=== PATIENT | female | born 1940 | race Two or more races ===

== ENCOUNTER 2016-08-12 08:40 | Outpatient (CLI) | payer MEDICARE, MEDICAID ==
[~2016-08-12] VITALS: Ht 160 cm; Wt 74.8 kg
[2016-08-12] VITALS (8 sets, daily range): BP systolic 101–132; BP diastolic 46–81
[~2016-08-12 08:40] MED LIST: ALLO100T PO; AMLO10TA2 PO; CARV12.52 PO; CARV25TA PO; CARV25TA2 PO; CLON0.1T PO; CLON0.2T PO; CLOP75TA PO; CYAN500T40 SL; DIPH25CA58 PO; DONE10TA7 PO; FERR-26 PO; INSU100I17 SQ; LEVO112T4 PO; LORA10TA68 PO; LOSA100T6 PO; NYST1000 SWSW; SERT50TA PO; SIMV10TA3 PO; VENTOLIN HFA18 GM INH; ZOLP5TAB PO
[2016-08-12 09:11] LABS: BASO % 0 % (0-3); EOS % 3 % (0-3); HEMATOCRIT 39.1 % (36.0-47.0); HEMOGLOBIN 13.4 g/dL (12.0-15.5); LYMPH # 1.5 x10^3/uL (1.0-4.8); LYMPH % 27 % (24-48); MEAN CORPUSCULAR HEMOGLOBIN 31 pg (25-35); MEAN CORPUSCULAR HGB CONC 34 g/dL (31-37); MEAN CORPUSCULAR VOLUME 91 fL (79-100); MONO % 7 % (0-9); NEUT % 63 % (31-73); PLATELET COUNT 207 x10^3/uL (140-400); RED BLOOD COUNT 4.31 x10^6/uL (3.50-5.40); RED CELL DISTRIBUTION WIDTH 14.8 % (11.5-14.5); WHITE BLOOD COUNT 5.7 x10^3/uL (4.0-11.0)
[2016-08-12] MEDS ORDERED: LIDOCAINE 1%/EPI 1:100,000 20 ML VIAL. ONE (09:19)
[2016-08-12 09:23] LABS: PROTHROMBIN TIME PATIENT 12.4 SEC (11.7-14.0)
[2016-08-12] MEDS ORDERED: FENTANYL PF 250 MCG/5 ML VIAL. ONE (09:40)
[2016-08-12] MEDS ORDERED: MIDAZOLAM HCL/PF 5 MG/5 ML VIAL ONE (09:40)
[2016-08-12] MEDS ORDERED: LIDOCAINE 1%/EPI 1:100,000 20 ML VIAL. IJ ONE (10:00)
[2016-08-12] MEDS ORDERED: MIDAZOLAM HCL/PF 5 MG/5 ML VIAL IV ONE (10:00)
[2016-08-12] MEDS ORDERED: FENTANYL PF 250 MCG/5 ML VIAL. IV ONE (10:00)
--- NOTE | 2016-08-12 10:01 | PDOC ---
MODERATE SEDATION ASSESSMENT RISKS/ALTERNATIVES Risks/Alternatives Risks and alternatives of this type of sedation and procedure discussed with: RISK/ALTERNATIVES: Patient H & P ON CHART H & P H & P on chart and reviewed for co-morbid conditions and appropriate labs. H&P ON CHART: Yes STATUS PREG STATUS ASSESSED: N/A MEDS/ALLERGIES REVIEWED Meds/Allergies Reviewed Medications and Allergies including time and route of recently administered narcotics and sedatives. MEDS/ALLERGIES REVIEWED: Yes ASA RATING ASA RATING: II AIRWAY ASSESSMENT Airway Assessment Airway patency, oral function limitations, presence of caps, crowns, dentures, partials, and ability to extend neck assessed. AIRWAY ASSESSMENT: Yes MALLAMPATI SCORE MALLAMPATI SCORE: II PRE-SEDATION ASSESSMENT PRE-SEDATION ASSESSMENT: Yes DOTTY ANDERS MD Aug 12, 2016 10:01
--- NOTE | 2016-08-12 10:04 | PDOC1 ---
History and Physical Date of Procedure Date of Admission 08/12/16 Procedure Procedure Removal of rt IJ tunneled Power Port Indication Indication Lymphoma in remission---chemotx complete---Power Port no longer needed. Past Medical History Past Medical History See Nursing Pre Procedure PMH Past Surgical History Past Surgical History See Nursing pre procedure PSH Current Medications Current Medications Current Medications Lidocaine/ Epinephrine 20 ml 20 ml STK-MED ONCE .ROUTE ; Start 08/12/16 at 09:19 ; Stop 08/12/16 at 09:20; Status DC Heparin Sodium/ Sodium Chloride 500 ml @ As Directed STK-MED ONCE .ROUTE ; Start 08/12/16 at 09:19; Stop 08/12/16 at 09:20; Status DC Midazolam HCl (Versed) 5 mg STK-MED ONCE .ROUTE ; Start 08/12/16 at 09:40; Stop 08/12/16 at 09:41; Status DC Fentanyl Citrate (Fentanyl 5ml Vial) 250 mcg STK-MED ONCE .ROUTE ; Start at 09:40; Stop 08/12/16 at 09:41; Status DC Heparin Sodium/ Sodium Chloride 1,000 unit 1X ONCE IART ; Start 08/12/16 at 10: 00; Stop 08/12/16 at 10:01 Midazolam HCl (Versed) 5 mg 1X ONCE IV ; Start 08/12/16 at 10:00; Stop 08/12/16 at 10:01 Fentanyl Citrate (Fentanyl 5ml Vial) 250 mcg 1X ONCE IV ; Start 08/12/16 at 10: 00; Stop 08/12/16 at 10:01 Lidocaine/ Epinephrine (Xylocaine 1%-Epi 1:100,000) 20 ml 1X ONCE IJ ; Start at 10:00; Stop 08/12/16 at 10:01 Active Scripts Active Allopurinol 100 Mg Tablet 200 Mg PO DAILY 30 Days Amlodipine Besylate 10 Mg Tablet 10 Mg PO BID 30 Days Reported Novolog Flexpen (Insulin Aspart) 100 Unit/1 Ml Insuln.pen 1 Unit SQ sliding scale per dr kostas Pereira (Diphenhydramine Hcl) 25 Mg Capsule 2 Cap PO QHS Coreg (Carvedilol) 25 Mg Tablet 1 Tab PO BID Simvastatin 10 Mg Tablet 10 Mg PO DAILY Ferrous Sulfate 325 Mg Tablet 325 Mg PO DAILY Losartan Potassium 100 Mg Tablet 100 Mg PO DAILY Zoloft (Sertraline Hcl) 50 Mg Tablet 50 Mg PO DAILY Levothyroxine Sodium 112 Mcg Tablet 112 Mcg PO DAILYAC Donepezil Hcl 10 Mg Tablet 10 Mg PO HS Clopidogrel (Clopidogrel Bisulfate) 75 Mg Tablet 75 Mg PO DAILY Allergies Allergies: Coded Allergies: No Known Drug Allergies (Unverified , 07/01/15) Physical Exam Vital Signs Vital Signs Date Time Temp Pulse Resp B/P Pulse Ox O2 Delivery O2 Flow Rate FiO2 08/12/16 09:24 Room Air 08/12/16 09:23 97.6 57 13 125/64 97 97.6 Lungs: Clear to auscultation Heart: Regular rate Psych/Mental Status: Mental status NL Other Right IJ tunneled Power Port in place---no evidence of infection Assessment Assessment Lymphoma in remission---chemotx complete Problems: Plan Plan Removal rt IJ tunneled Power Port. DOTTY ANDERS MD Aug 12, 2016 10:04
--- NOTE | 2016-08-12 10:08 | PDOC ---
Exam Machine Shorthand Reporter Machine Shorthand Reporter Shakeel Aitchbone Breaker Aitchbone Breaker Sandra Gross Pre-Procedure Diagnosis Pre-Procedure Diagnosis Lymphoma in remission---chemotx complete---Power Port no longer needed. Post-Procedure Diagnosis Post-Procedure Diagnosis Same Procedure Performed Procedure Performed Removal rt IJ tunneled Power Port Type of Anesthesia Type of Anesthesia Local + Mod sedation Estimated Blood Loss EBL: Minimal Specimens Specimans 8F rt IJ tuneled Power Port removed and discarded Condition of Patient Condition of Patient Stable. No apparent complication. Disposition Disposition Home from [facility] post recovery, if no problems. F/u with referring physician, Full report to follow. DOTTY ANDERS MD Aug 12, 2016 10:08
[2016-08-12] MEDS ORDERED: CLON0.1T PO (10:48)
--- NOTE | 2016-08-12 15:43 | RAD ---
Removal of Power Port Indication: 75-year-old female with large B-cell lymphoma in remission. Chemotherapy complete. Power port no longer required. Moderate sedation: 17 minutes moderate sedation was provided utilizing a total of 1.5 mg Versed and 75 mcg fentanyl, IV. The patient was appropriately monitored by a qualified independent observer throughout the course of the moderate sedation. Sterility: All elements of maximal sterile barrier technique, including the use of a cap, mask, sterile gown, sterile gloves, large sterile sheet, appropriate hand hygiene, and 2% chlorhexidine for cutaneous antisepsis (or acceptable alternative antiseptic per current guidelines) were utilized. Fluoroscopy time: 0.1 minutes Kerma-Area Product: 0.4 Gycm2 Antibiotic: No prophylactic antibiotic was considered indicated for this power port removal procedure. Procedure: Informed consent was obtained from the patient. She was placed supine on the angiography table. Right chest was prepped and draped in the usual sterile fashion, utilizing all elements of maximal sterile barrier technique, as described above. Conscious sedation was provided with IV versed and fentanyl. Using aseptic technique and local anesthesia, a small horizontally oriented skin incision was made overlying body of the indwelling Power Port. Subsequently, using a combination of blunt and sharp dissection, the Power Port body was freed from surrounding soft tissues. The port body and catheter were then easily removed as a single unit, using gentle traction. Hemostasis was achieved using manual pressure over right internal jugular vein. The chest incision was then closed with 4-0 Vicryl, steri-strips, and sterile dressing. Complete removal of the Power Port was confirmed with pre- and post-procedure fluoroscopic spot images. Patient tolerated the procedure well, without apparent complication. Impression: Successful, uneventful removal of right IJ tunneled Power Port, as described.
== END 2016-08-12 12:00 | disposition home or self-care (01) ==
LOC: INTRAD 08:40
PROVIDERS: ATTEND Internal Medicine Hematology & Oncology
DX: C85.90 Non-Hodgkin lymphoma, unspecified, unspecified site (principal); E78.00 Pure hypercholesterolemia, unspecified; I10 Essential (primary) hypertension; N39.0 Urinary tract infection, site not specified; E11.9 Type 2 diabetes mellitus without complications; E03.9 Hypothyroidism, unspecified; F41.9 Anxiety disorder, unspecified; F32.9 Major depressive disorder, single episode, unspecified
CPT/HCPCS: 36415; 36590; 82947; 85027; 85610; J2250; J3010; J3490

== ENCOUNTER → 2016-10-06 | Outpatient (CLI) | payer MEDICARE, MEDICAID ==
[2016-09-05 11:49] VITALS: BP 124/49
--- NOTE | 2016-10-06 18:09 | CARD ---
APPROVED REPORT EXAM: Two-dimensional and M-mode echocardiogram with Doppler and color Doppler. Other Information Quality : Technically LimitedHR: 65bpm Rhythm : NSR INDICATION Dyspnea Fatigue Hypertension/HCVD Murmur Mitral Regurgitation RISK FACTORS Hypertension Hyperlipidemia Family History 2D DIMENSIONS RVDd3.2 (2.9-3.5cm)Left Atrium(2D)3.8 (1.6-4.0cm) IVSd0.9 (0.7-1.1cm)Aortic Root(2D)2.5 (2.0-3.7cm) LVDd3.2 (3.9-5.9cm)LVOT Diameter2.2 (1.8-2.4cm) PWd0.9 (0.7-1.1cm)LVDs2.2 (2.5-4.0cm) FS (%) 31.1 %SV24.1 ml LVEF(%)65.0 (>50%) Aortic Valve AoV Peak Thong.200.0cm/sAoV VTI42.8cm AO Peak GR.16.0mmHgLVOT Peak Thong.178.4cm/s LVOT VTI 44.20cmAO Mean GR.7mmHg JESUS (VMAX)3.84fb2GOR (VTI)3.81cm2 Mitral Valve MV E Gaizukko629.6cm/sMV DECEL UKYG654hs MV A Lnpiiwpo11.7cm/sMV E Mean Gr.3mmHg MV FGJ07tzZ/A Ratio1.2 MV A Dczphxyo806hzWUM (PHT)2.89cm2 TDI E/Lateral E'11.1E/Medial E'13.8 Pulmonary Valve PV Peak Hcjdrysk24.4cm/sPV Peak Grad.4mmHg Tricuspid Valve TR P. Jmolhlor291hx/sRAP BIHSHWSG7isOs TR Peak Gr.20vnLpJXPY11wxDc Pulmonary Vein S1 Zyuaeyww39.2cm/sD2 Rgxafzkj08.7cm/s PVa arcondys312askl LEFT VENTRICLE The left ventricle is normal size. There is normal left ventricular wall thickness. Left ventricle sy stolic function is normal. The Ejection Fraction is 65%. There is normal LV segmental wall motion. Tr ansmitral Doppler flow pattern is normal for age. There is no ventricular septal defect visualized. RIGHT VENTRICLE The right ventricle is normal size. There is normal right ventricular wall thickness. The right ventr icular systolic function is normal. Moderator band appears thickened. ATRIA The left atrium size is normal. The right atrium size is normal. The interatrial septum is intact wit h no evidence for an atrial septal defect or patent foramen ovale as noted on 2-D or Doppler imaging. AORTIC VALVE The aortic valve is calcified The aortic valve is trileaflet. Doppler and Color Flow revealed trivial aortic regurgitation. There is very mild aortic valvular stenosis. The gradient may be about 16 mmHg for the peak pressure MITRAL VALVE Mitral annular calcification is mild. There is no evidence of mitral valve prolapse. Doppler and [place] r Flow revealed moderate mitral regurgitation. TRICUSPID VALVE The tricuspid valve is normal in structure. Doppler and Color Flow revealed moderate tricuspid regurg itation. There is moderate pulmonary hypertension. The PA pressure was estimated at 40 mmHg. PULMONIC VALVE The pulmonary valve is normal in structure. Doppler and Color Flow revealed mild pulmonic valvular re gurgitation. GREAT VESSELS The aortic root is normal in size. The ascending aorta is normal in size. Normal pulmonary venous soila w (Doppler). The IVC is normal in size and collapses >50% with inspiration. PERICARDIAL EFFUSION There is no pleural effusion. There is no evidence of significant pericardial effusion. Critical Notification Critical Value: No <Conclusion> Left ventricle systolic function is normal. The Ejection Fraction is 65%. There is no ventricular septal defect visualized. The right ventricle is normal size. The left atrium size is normal. The right atrium size is normal. There is very mild aortic valvular stenosis. The gradient may be about 16 mmHg for the peak pressure Doppler and Color Flow revealed trivial aortic regurgitation. The aortic valve is calcified The aortic valve is trileaflet. Mitral annular calcification is mild. Doppler and Color Flow revealed moderate mitral regurgitation. Mitral annular calcification is mild. Doppler and Color Flow revealed moderate tricuspid regurgitation. There is moderate pulmonary hypertension. The PA pressure was estimated at 40 mmHg. Doppler and Color Flow revealed mild pulmonic valvular regurgitation. There is no evidence of significant pericardial effusion.
== END | disposition home or self-care (01) ==
LOC: ECHO 07:56
PROVIDERS: ATTEND Internal Medicine Cardiovascular Disease
DX: I10 Essential (primary) hypertension (principal); I34.0 Nonrheumatic mitral (valve) insufficiency; R06.00 Dyspnea, unspecified; R53.83 Other fatigue; R01.1 Cardiac murmur, unspecified; I27.2 Other secondary pulmonary hypertension; I07.1 Rheumatic tricuspid insufficiency
CPT/HCPCS: 93306

== ENCOUNTER → 2017-01-26 | Outpatient (CLI) | payer MEDICARE, MEDICAID ==
[2016-09-05 11:49] VITALS: BP 124/49
[~2017-01-26] MED LIST changes: -NYST1000 SWSW; +NYST100054 SWSW
--- NOTE | 2017-01-26 12:20 | RAD ---
FDG tumor localization scan, PET/CT, 01/26/2017: History: Restaging lymphoma Following IV injection of 13.5 mCi of 18 F-FDG, imaging was performed from the skull base to the proximal thighs. The noncontrast CT component was performed for attenuation correction and anatomic localization purposes rather than for primary diagnosis. The patient's blood glucose level at the time of injection was 193 MG/DL. Comparison is made to a study from 07/21/2016. Normal GI tract and urinary tract activity is present in the abdomen and pelvis. Mildly enlarged periaortic and mesenteric lymph nodes are unchanged. There is mild streaky increased density in the adjacent mesentery on the CT component, also unchanged. These nodes do not demonstrate increased FDG uptake. No hypermetabolic process is identified in the abdomen or pelvis. Pulmonary and mediastinal activity is unremarkable. There is moderately increased activity in the right lower cheek region. Its exact location is not entirely clear due to slight misregistration between the CT and PET components due to head motion. The CT component demonstrates no definite mass in this region. This increased activity is centered just anterior to the right masseter muscle and anterior margin of the inferior portion of the mandibular ramus. This is likely dental related inflammation or could be secondary to jaw clenching. The neck activity is otherwise unremarkable. Incidental CT findings include the presence of a moderate sized gallstone. There is extensive calcific plaquing of the aorta with moderate coronary artery calcifications again noted. Colonic diverticula are present. There is a moderate sized right renal cyst. IMPRESSION: 1. Stable abdominal and pelvic FDG PET findings without evidence of tumor recurrence. 2. New abnormal focus of increased activity in the right cheek region as described above is most likely dental related.
== END | disposition home or self-care (01) ==
LOC: PETSC 08:24
PROVIDERS: ATTEND Internal Medicine Hematology & Oncology
DX: C83.33 Diffuse large B-cell lymphoma, intra-abdominal lymph nodes (principal); K57.30 Diverticulosis of large intestine without perforation or abscess without bleeding; N28.1 Cyst of kidney, acquired
CPT/HCPCS: 78815; A9552

== ENCOUNTER 2017-04-25 06:47 | Observation (INO) | payer MEDICARE, MEDICAID ==
[2017-04-25] VITALS (9 sets, daily range): BP systolic 164–189; BP diastolic 49–122
[~2017-04-25] VITALS: Ht 157.5 cm; Wt 77.1 kg
[~2017-04-25 06:47] MED LIST changes: +ASPI-482 PO; +DABI150C PO; +HEPARIN 1,000 UNIT in IV NORMAL SALINE 1,000 ML for SURG PERIOP IRR ONE; +LEVO500T59 PO
[2017-04-25] MEDS ORDERED: fentaNYL PF VIAL 100 MCG/2 ML VIAL IV PRN ×2 (07:00)
[2017-04-25] MEDS ORDERED: MORPHINE SULFATE 2 MG/ML DISP.SYRIN. IV PRN (07:00)
[2017-04-25] MEDS ORDERED: LIDOCAINE 1% 1 ML SYRINGE. ID PRN (07:00)
[2017-04-25] MEDS ORDERED: IV RINGERS,LACTATED 1000ML 1,000 ML IV SCH (07:00)
[2017-04-25] MEDS ORDERED: HYDROmorphone 2 MG/ML VIAL IV PRN (07:00)
[2017-04-25] MEDS ORDERED: PROCHLORPERAZINE 10 MG/2 ML VIAL. IV PRN (07:00)
[2017-04-25] MEDS ORDERED: IBUPROFEN 200 MG TABLET. PO ONE ×2 (07:05→14:00)
[2017-04-25] MEDS ORDERED: BISACODYL 10 MG SUPP.RECT. ONE (07:13)
[2017-04-25] MEDS ORDERED: IOHEXOL 300 MG/ML 50 ML VIAL. ONE (07:13)
[2017-04-25] MEDS ORDERED: SURGICEL HEMOSTAT 2X3 EACH. ONE (07:13)
[2017-04-25] MEDS ORDERED: BUPIVACAINE-EPI 0.5%-1:200000 50 ML VIAL. ONE (07:13)
[2017-04-25] MEDS ORDERED: LIDOCAINE 2% PF Vial for OR 5 ML VIAL. ONE (07:31)
[2017-04-25] MEDS ORDERED: DEXAMETHASONE SOD PHOS 20 MG/5 ML VIAL. ONE (07:31)
[2017-04-25] MEDS ORDERED: PROPOFOL 20 ML IV ONE (07:31)
[2017-04-25] MEDS ORDERED: DESFLURANE 61 TO 120 MINUTES IH ONE (07:31)
[2017-04-25] MEDS ORDERED: ONDANSETRON PF 4 MG/2 ML VIAL. ONE (07:31)
[2017-04-25] MEDS ORDERED: fentaNYL PF VIAL 100 MCG/2 ML VIAL ONE (07:32)
[2017-04-25] MEDS ORDERED: ROCURONIUM 100 MG/10 ML VIAL. ONE (07:32)
--- NOTE | 2017-04-25 08:06 | PDOC ---
SURGICAL PROGRESS NOTE Subjective Pre-Op Note 76 yo F with gallstone pancreatitis office note H&P reviewed and unchanged pt seen and examined. R/B/A d/w pt, risks, including, but not limited to: bleeding, infection, damage to surrounding structures, risk of anesthesia. Pt appears to understand, her questions are answered and she agrees to proceed. TO OR for lap yeison with grams. Vital Signs Vital Signs Date Time Temp Pulse Resp B/P (MAP) Pulse Ox O2 Delivery O2 Flow Rate FiO2 04/25/17 07:11 98.2 67 18 95 98.2 Labs Laboratory Tests Test 04/25/17 07:41 Glucose (Fingerstick) 140 mg/dL (70-99) Laboratory Tests Test 04/25/17 07:41 Glucose (Fingerstick) 140 mg/dL (70-99) YAYA FAIRCHILD MD Apr 25, 2017 08:06
[2017-04-25] MEDS ORDERED: GLYCOPYRROLATE 1 MG/5 ML VIAL. ONE (08:46)
[2017-04-25] MEDS ORDERED: NEOSTIGMINE 10 MG/10 ML VIAL. ONE (09:01)
--- NOTE | 2017-04-25 09:06 | RAD ---
Intraoperative cholangiogram, 04/25/2017: History: Cholecystectomy 3 spot films from surgery are presented for review. Contrast has been injected into the cystic duct remnant. 0.2 minutes of fluoroscopy time was utilized. There is good flow of contrast into the duodenum at the ampulla. No filling defect is seen in the common duct to suggest a retained calculus. There is considerable contrast extravasation in the gallbladder fossa region. This is likely on a technical basis related to the catheter insertion site in the cystic duct remnant, however, a true biliary leak cannot be entirely excluded. There is very little intrahepatic biliary ductal opacification.
[2017-04-25] MEDS ORDERED: INSULIN ASPART 100 UNIT/ML 10ML VIAL. SQ PRN (09:30)
[2017-04-25] MEDS: IV RINGERS,LACTATED 1000ML 1,000 ML IV SCH ×2 (10:20→20:39)
[2017-04-25] MEDS ORDERED: DEXTROSE 50% 25 GM / 50ML DISP.SYRIN. IV PRN ×2 (10:30→12:30)
[2017-04-25] MEDS ORDERED: 0.9 % SODIUM CHLORIDE 10 ML DISP.SYRIN. IV PRN (10:30)
[2017-04-25] MEDS ORDERED: ONDANSETRON PF 4 MG/2 ML VIAL. IV PRN (10:30)
[2017-04-25] MEDS ORDERED: KETOROLAC 30 MG/ML INJ. IV PRN (10:30)
--- NOTE | 2017-04-25 10:31 | PDOC4 ---
OPERATIVE NOTE Date: Date: Apr 25, 2017 Pre-Op Diagnosis: Cholecystitis Post-Op Diagnosis: same Procedure Performed: Laparoscopic cholecystectomy with cholangiogram Surgeon: Froylan Fairchild Anesthesia Type: GETA plus 0.5% marcaine Blood Loss: minimal Specimans Obtained: gallbladder Findings: normal cholangiogram Complications: none Operative Note: After obtaining informed consent, patient was taken to the OR, induced under GETA and prepped in the usual fashion. 5 mm port placed supraumbilical and right upper quadrant with 10 port in epigastric area, all under laparoscopic guidance. Mild adhesions in the lower pelvis, but no other pathology noted. Gallbladder with chronic adhesions. Gallbladder grasped, triangle of calot exposed, critical view obtained. Clips placed on cystic artery. Cholangiogram obtained which was normal. Cystic duct stump ligated with clips and hemolok. Gallbladder taken off fossa sharply using cautery, placed in endocatch bag and delivered. No evidence of bleeding or bile leak. Fascia repair with PMI 0 vicryl. Skin repaired with 4 0 moncryl. Dressing applied. Patient tolerated procedure well and sent to PACU in stable condition. All counts correct. No immediate complications. FROYLAN FAIRCHILD MD Apr 25, 2017 10:31
[2017-04-25 11:56] LABS: CREATININE 1.3 mg/dL (0.6-1.0); GFR 39.6
[2017-04-25] MEDS ORDERED: DONE10TA7 PO (12:24)
[2017-04-25] MEDS: FERROUS SULFATE 325 MG TABLET. PO SCH (13:58)
[2017-04-25] MEDS: SERTRALINE 50 MG TABLET. PO SCH (13:59)
[2017-04-25] MEDS: INSULIN ASPART 300 UNITS/3 ML INSULN.PEN SQ SCH ×2 (14:08→17:06)
[2017-04-25] MEDS: LEVOTHYROXINE 112 MCG TABLET PO SCH (16:54)
[2017-04-25] MEDS: HYDROcodone/APAP 5/325MG 1 TAB TABLET PO PRN (16:55)
[2017-04-25] MEDS: CARVEDILOL 12.5 MG TABLET. PO SCH (16:55)
[2017-04-25] MEDS ORDERED: INSULIN ASPART 300 UNITS/3 ML INSULN.PEN SQ SCH ×2 (17:00→21:00)
[2017-04-25] MEDS ORDERED: INFLUENZA VAX SCREEN BY RX. MC PRN (19:30)
[2017-04-25] MEDS: DOCUSATE SODIUM 100 MG CAPSULE. PO SCH (20:33)
[2017-04-25] MEDS: amLODIPine BESYLATE 5 MG TABLET PO SCH (20:37)
[2017-04-25] MEDS ORDERED: DABIGATRAN ETEXILATE 150 MG CAPSULE. PO SCH (21:00)
[2017-04-25] MEDS ORDERED: INSULIN ASPART 300 UNITS/3 ML INSULN.PEN SQ ONE (21:00)
[2017-04-25] MEDS ORDERED: diphenhydrAMINE HCL 25 MG CAPSULE PO SCH (21:00)
[2017-04-25] MEDS ORDERED: SIMVASTATIN 10 MG TABLET PO SCH (21:00)
[2017-04-25] MEDS ORDERED: DONEPEZIL HCL 10 MG TABLET. PO SCH (21:00)
[2017-04-26] MEDS ORDERED: INSULIN ASPART 300 UNITS/3 ML INSULN.PEN SQ ONE
[2017-04-26 03:22] VITALS: BP 199/53
[2017-04-26 03:44] VITALS: BP 194/57
[2017-04-26] MEDS: IV RINGERS,LACTATED 1000ML 1,000 ML IV SCH (05:56)
[2017-04-26] MEDS: HYDROcodone/APAP 5/325MG 1 TAB TABLET PO PRN ×2 (05:57)
[2017-04-26] MEDS: LEVOTHYROXINE 112 MCG TABLET PO SCH (05:58)
[2017-04-26 07:00] VITALS: BP 151/79
[2017-04-26] MEDS ORDERED: ASPIRIN ENTERIC COATED 81 MG TABLET.DR. PO SCH (09:00)
[2017-04-26] MEDS ORDERED: ENOXAPARIN 40 MG/0.4 ML SYRINGE. SQ SCH (09:00)
[2017-04-26] MEDS ORDERED: FLU VACC QS2017-18 (36MOS+)/PF 0.5 ML SYRINGE. VAX IM ONE (09:00)
[2017-04-26 10:22] VITALS: BP 151/79
[2017-04-26] MEDS: SERTRALINE 50 MG TABLET. PO SCH (10:22)
[2017-04-26] MEDS: amLODIPine BESYLATE 5 MG TABLET PO SCH (10:22)
[2017-04-26] MEDS: CARVEDILOL 12.5 MG TABLET. PO SCH (10:22)
[2017-04-26] MEDS: DOCUSATE SODIUM 100 MG CAPSULE. PO SCH (10:23)
[2017-04-26] MEDS: FERROUS SULFATE 325 MG TABLET. PO SCH (10:23)
[2017-04-26] MEDS: INSULIN ASPART 300 UNITS/3 ML INSULN.PEN SQ SCH ×2 (10:27→12:08)
[2017-04-26] MEDS ORDERED: HYDR-2758 PO (11:13)
[2017-04-26] MEDS ORDERED: DOCU-109 PO (11:13)
--- NOTE | 2017-04-26 11:14 | PDOC ---
SURGICAL PROGRESS NOTE Subjective Pt without c/o, seb PO well Vital Signs Vital Signs Date Time Temp Pulse Resp B/P (MAP) Pulse Ox O2 Delivery O2 Flow Rate FiO2 04/26/17 10:22 63 151/79 04/26/17 07:00 98.6 20 95 Room Air 98.6 04/25/17 09:31 10 General: Alert, Oriented X3, Cooperative, No acute distress Abdomen: Soft, No tenderness Labs Laboratory Tests Test 04/25/17 07:41 04/25/17 09:22 04/25/17 10:52 04/25/17 11:30 Glucose (Fingerstick) 140 mg/dL (70-99) 181 mg/dL (70-99) 155 mg/dL (70-99) Creatinine 1.3 mg/dL (0.6-1.0) Estimated GFR (Cockcroft-Gault) 39.6 Test 04/25/17 14:04 04/25/17 16:40 04/25/17 20:43 04/25/17 22:55 Glucose (Fingerstick) 284 mg/dL (70-99) 209 mg/dL (70-99) 284 mg/dL (70-99) 258 mg/dL (70-99) Laboratory Tests Test 04/25/17 11:30 04/25/17 14:04 04/25/17 16:40 04/25/17 20:43 Creatinine 1.3 mg/dL (0.6-1.0) Estimated GFR (Cockcroft-Gault) 39.6 Glucose (Fingerstick) 284 mg/dL (70-99) 209 mg/dL (70-99) 284 mg/dL (70-99) Test 04/25/17 22:55 Glucose (Fingerstick) 258 mg/dL (70-99) Problem List s/p lap yeison d/c home f/u with PCP regarding elevated glu and HTN Problems: YAYA FAIRCHILD MD Apr 26, 2017 11:14
--- NOTE | 2017-04-27 13:34 | PATHOLOGY ---
PATHOLOGY REPORT * * * * * * * * FINAL DIAGNOSIS: Gallbladder, laparoscopic cholecystectomy: - Cholelithiasis. - Chronic cholecystitis. - Benign pericystic duct lymph node. COMMENT: There is no evidence of malignancy. (JPM:mgr; 04/27/2017) REPORT ELECTRONICALLY SIGNED BY: Sebas Redman M.D. DATE/TIME: 04/27/2017 13:34 * * * * * * * * GROSS PATHOLOGY: Received in formalin labeled "Chelo Alba, gallbladder and contents," is a 7.3 x 3.2 x 2.5 cm, intact gallbladder with purple antonio serosal surfaces. Opening the gallbladder reveals donahue brown, velvety mucosa and an average wall thickness of 0.3 cm. A single, large ovoid calculus, measuring 3.7 cm in greatest dimensions is present and no masses are noted grossly. Validation Leader sections from the body and fundus are submitted along with the proximal margin in cassette A1. There is a small, 0.7 cm rubbery purple antonio lymph node along the serosal surface of the neck of the gallbladder. This is submitted in toto, also in cassette A1. (JPM; 04/25/17) INITIAL CPT CODE(S): A; 32515 Professional services performed by [employer] at [address] [address] Technical services performed by [employer] at [address] [place] [address], [facility] [address] [address]. SPECIMEN(S) RECEIVED: A.Gallbladder sac with contents CLINICAL HISTORY: Gallstone pancreatitis PATIENT: CHELO ALBA /AGE: 1 1940 (Age: 76) PATIENT #: [id number] ALT CASE #: SPECIMEN COLLECTION DATE: 04/25/2017 SPECIMEN RECEIVED DATE: 04/25/2017 [facility] - [id number] [address] - PHONE: [phone] * * * END OF REPORT * * *
== END 2017-04-26 13:30 | disposition home or self-care (01) ==
LOC: SURG 06:47 → 4 NORTH 10:40
PROVIDERS: ADMIT Surgery; ATTEND Surgery
DX: K85.10 Biliary acute pancreatitis without necrosis or infection (principal); E03.9 Hypothyroidism, unspecified; C85.90 Non-Hodgkin lymphoma, unspecified, unspecified site; I63.9 Cerebral infarction, unspecified; E78.5 Hyperlipidemia, unspecified; F41.9 Anxiety disorder, unspecified; F32.9 Major depressive disorder, single episode, unspecified; E11.22 Type 2 diabetes mellitus with diabetic chronic kidney disease; I12.9 Hypertensive chronic kidney disease with stage 1 through stage 4 chronic kidney disease, or unspecified chronic kidney disease; N18.9 Chronic kidney disease, unspecified; F03.90 Unspecified dementia, unspecified severity, without behavioral disturbance, psychotic disturbance, mood disturbance, and anxiety; N39.0 Urinary tract infection, site not specified; E66.9 Obesity, unspecified; Z86.73 Personal history of transient ischemic attack (TIA), and cerebral infarction without residual deficits; Z68.30 Body mass index [BMI] 30.0-30.9, adult; Z98.890 Other specified postprocedural states; Z23 Encounter for immunization
CPT/HCPCS: 36415; 47563; 74300; 82565; 82962; 88304; 90471; 90686; 96372; 96374; G0378; G0379; J0690; J1100; J1644; J1650; J1815; J1885; J2405; J2704; J2710; J3010; J3490; J7030; J7120; Q0163; Q9967; J2001

== ENCOUNTER → 2017-09-14 | Outpatient (CLI) | payer MEDICARE, MEDICAID | END | disposition home or self-care (01) | LOC: PETSC 09:40 | DX: Z85.72 Personal history of non-Hodgkin lymphomas (principal); C83.30 Diffuse large B-cell lymphoma, unspecified site (principal); C85.90 Non-Hodgkin lymphoma, unspecified, unspecified site; N28.1 Cyst of kidney, acquired; K57.30 Diverticulosis of large intestine without perforation or abscess without bleeding | CPT/HCPCS: 78815; A9552 ==

== ENCOUNTER 2018-07-22 12:15 | Emergency (ER) | payer MEDICARE, MEDICAID ==
[~2018-07-22] VITALS: Ht 160 cm; Wt 77.1 kg
[~2018-07-22 12:15] MED LIST changes: -AMLO10TA2 PO; +AMLO10TA6 PO; +CARV12.511 PO; -CARV12.52 PO; +DOCU-109 PO; -FERR-26 PO; +FERR325T14 PO; -HEPARIN 1,000 UNIT in IV NORMAL SALINE 1,000 ML for SURG PERIOP IRR ONE; +HYDR-2761 PO; +LOSA100T14 PO; -LOSA100T6 PO
[2018-07-22 12:47] VITALS: BP 184/79
--- NOTE | 2018-07-22 13:06 | RAD ---
Left hip with pelvis radiograph 07/22/2018 12:42 PM INDICATION: Left hip pain and groin pain. COMPARISON: None available. TECHNIQUE: AP view the pelvis and 2 dedicated views of the left hip. FINDINGS: There is no acute fracture or dislocation. Bone mineralization is within normal limits. Joint spaces are maintained. Regional soft tissues are within normal limits. There is no soft tissue gas or osseous erosion. Vascular calcifications are present. Phleboliths are identified within the pelvis. Moderate degenerative changes are identified at the lumbosacral junction. Sacral joan are intact. Superior and inferior pubic rami are intact. IMPRESSION: No acute fracture or dislocation. Electronically signed by: Mary Nunez MD (07/22/2018 1:03 PM) [facility]
--- NOTE | 2018-07-22 13:18 | PHYS DOC ---
Past Medical History Past Medical History: Dementia, Diabetes-Type II, High Cholesterol, Hypertension, Hypothyroid, Other Additional Past Medical Histor: Lymphoma in remission Past Surgical History: Tonsillectomy Additional Past Surgical Histo: carotid, hernia, port-a-cath removed Alcohol Use: None Drug Use: None Adult General Chief Complaint Chief Complaint: GROIN PAIN [facility] HPI Patient is a 77 year old female presents for evaluation of nontraumatic left hip pain. She reports she started feeling pain in the anterior left hip while at home today. She did not have any fall or injury. Denies any urinary symptoms. Denies any abdominal pain or back pain. Review of Systems Review of Systems Constitutional: Denies fever or chills [] Eyes: Denies change in visual acuity, redness, or eye pain [] HENT: Denies nasal congestion or sore throat [] Respiratory: Denies cough or shortness of breath [] Cardiovascular: No additional information not addressed in HPI [] GI: Denies abdominal pain, nausea, vomiting, bloody stools or diarrhea [] : Denies dysuria or hematuria [] Musculoskeletal: Left hip pain[] Integument: Denies rash or skin lesions [] Neurologic: Denies headache, focal weakness or sensory changes [] Endocrine: Denies polyuria or polydipsia [] All other systems were reviewed and found to be within normal limits, except as documented in this note. Current Medications Current Medications Current Medications Medications (Trade) Dose Ordered Sig/Brandon Start Time Stop Time Status Last Admin Dose Admin Acetaminophen/ Hydrocodone Bitart (Lortab 5/325) 1 tab 1X ONCE 07/22/18 13:45 07/22/18 13:46 DC 07/22/18 13:47 1 TAB Allergies Allergies Allergies Coded Allergies Type Severity Reaction Last Updated Verified No Known Drug Allergies 04/25/17 No Physical Exam Physical Exam Constitutional: Well developed, well nourished, no acute distress, non-toxic appearance. [] Cardiovascular:Heart rate regular rhythm, no murmur [] Lungs & Thorax: Bilateral breath sounds clear to auscultation [] Abdomen: Soft, nontender Skin: Warm, dry, no erythema, no rash. [] Back: No tenderness, no CVA tenderness. [] Extremities: Tenderness to the left anterior hip, pain with passive range of motion no cyanosis, no edema. [] Neurologic: Alert and oriented X 3, normal motor function, normal sensory function, no focal deficits noted. [] Psychologic: Affect normal, judgement normal, mood normal. [] Current Patient Data Vital Signs Vital Signs Date Time Temp Pulse Resp B/P (MAP) Pulse Ox O2 Delivery O2 Flow Rate FiO2 07/22/18 14:00 56 97 Room Air 07/22/18 12:47 97.7 18 184/79 (114) 97.7 Lab Values Laboratory Tests Test 07/22/18 13:35 Urine Collection Type Unknown Urine Color Yellow Urine Clarity Clear Urine pH 5.5 Urine Specific [place] 1.025 Urine Protein 30 mg/dL (NEG-TRACE) Urine Glucose (UA) >=1000 mg/dL (NEG) Urine Ketones (Stick) Negative mg/dL (NEG) Urine Blood Negative (NEG) Urine Nitrite Negative (NEG) Urine Bilirubin Negative (NEG) Urine Urobilinogen Dipstick 0.2 mg/dL (0.2 mg/dL) Urine Leukocyte Esterase Negative (NEG) Urine RBC 0 /HPF (0-2) Urine WBC 0 /HPF (0-4) Urine Squamous Epithelial Cells Few /LPF Urine Bacteria 0 /HPF (0-FEW) Urine Mucus Slight /LPF EKG EKG [] Radiology/Procedures Radiology/Procedures [PROCEDURE: HIP LEFT 2V WITH PELVIS Left hip with pelvis radiograph 07/22/2018 12:42 PM INDICATION: Left hip pain and groin pain. COMPARISON: None available. TECHNIQUE: AP view the pelvis and 2 dedicated views of the left hip. FINDINGS: There is no acute fracture or dislocation. Bone mineralization is within normal limits. Joint spaces are maintained. Regional soft tissues are within normal limits. There is no soft tissue gas or osseous erosion. Vascular calcifications are present. Phleboliths are identified within the pelvis. Moderate degenerative changes are identified at the lumbosacral junction. Sacral joan are intact. Superior and inferior pubic rami are intact. IMPRESSION: No acute fracture or dislocation. Electronically signed by: Mary Nunez MD (07/22/2018 1:03 PM) [facility]] Course & Med Decision Making Course & Med Decision Making Pertinent Labs and Imaging studies reviewed. (See chart for details) [X-ray of the hip is negative, UA is negative, discussed findings with patient and her daughter at bedside, patient is requesting discharge home stating she is feeling better and not in much pain anymore. She has an appointment with her primary care doctor on Monday. Return to ER for new or worsening symptoms.] Staff Physician Addendum: I was working in the ER during the course of this patient's visit. I was available for consultation as needed, but I was not directly involved in the care of this patient. Dragon Disclaimer Dragon Disclaimer This electronic medical record was generated, in whole or in part, using a voice recognition dictation system. Departure Departure Impression: Primary Impression: Hip pain, left Disposition: 01 HOME, SELF-CARE Condition: STABLE Referrals: FRAN BUSTOS MD (PCP) Patient Instructions: Hip Pain HOLLY TORRES APRN Jul 22, 2018 13:18 TAYLOR GARCIA MD Jul 22, 2018 16:00
[2018-07-22] MEDS ORDERED: HYDROcodone/APAP 5/325MG 1 TAB TABLET PO ONE (13:45)
[2018-07-22 13:46] LABS: BILIRUBIN,URINE NEGATIVE (NEG); CLARITY,URINE CLEAR; COLOR,URINE YELLOW; NITRITE,URINE NEGATIVE (NEG); PH,URINE 5.5; PROTEIN,URINE 30 mg/dL (NEG-TRACE); UROBILINOGEN,URINE 0.2 mg/dL (0.2 mg/dL)
[2018-07-22 14:05] LABS: BACTERIA,URINE 0 /HPF (0-FEW); RBC,URINE 0 /HPF (0-2); SQUAMOUS EPITHELIAL CELL,UR FEW /LPF; WBC,URINE 0 /HPF (0-4)
== END 2018-07-22 14:30 | disposition home or self-care (01) ==
LOC: ER 12:15
DX: M25.552 Pain in left hip (principal); E11.9 Type 2 diabetes mellitus without complications; E78.00 Pure hypercholesterolemia, unspecified; I10 Essential (primary) hypertension; E03.9 Hypothyroidism, unspecified; Z90.89 Acquired absence of other organs
CPT/HCPCS: 73502; 81001; 99284; P9612

== ENCOUNTER → 2018-10-04 | Outpatient (CLI) | payer MEDICARE, MEDICAID ==
[2017-04-26 10:22] VITALS: BP_DIAS 79
[2018-07-22 12:47] VITALS: BP_SYST 184
[~2018-10-04] MED LIST changes: -AMLO10TA6 PO; +AMLO10TA8 PO
--- NOTE | 2018-10-04 15:12 | RAD ---
PET/CT imaging from the skull through the midthigh History: Restaging lymphoma . Comparison: September 14, 2017 Technique: PET examination was performed from the skull base to the proximal thighs after intravenous administration of 13.8 mCi Fluorine [address] scan was performed for the purposes of localization and attenuation, not for primary diagnosis. Blood glucose level at time of injection was 165 mg/dl. PQRS Compliance Statement: One or more of the following individualized dose reduction techniques were utilized for this examination: 1. Automated exposure control 2. Adjustment of the mA and/or kV according to patient size 3. Use of iterative reconstruction technique Findings: Head and neck: Normal physiologic activity seen including the thyroid gland. There is mucosal thickening of both maxillary sinuses and opacification of both sinuses. Chest: No hypermetabolic or enlarged lymphadenopathy is evident. No lung mass or lung nodule or consolidative lung infiltrate is seen. Calcified atheromatous disease of the coronary arteries is seen. Abdomen and pelvis CT: There is hypermetabolic activity involving the proximal body of the stomach with a maximum SUV of 4.0. There is physiologic activity elsewhere within the bowel and tract. A prominent right renal cyst is seen measuring 7 cm. There is a bilobed ovarian cyst or 2 cysts adjacent to one another within the right ovary. The larger cyst measures 2.5 cm. No enlarged abdominal or pelvic lymphadenopathy is evident. The spleen is not enlarged without hypermetabolic activity. Musculoskeletal: No hypermetabolic lesion is seen.No lytic process is seen. IMPRESSION: No enlarging lymphadenopathy or hypermetabolic lymphadenopathy is seen in the neck, chest, abdomen or pelvis. The spleen is not enlarged. Bilobed ovarian cyst or 2 cysts of the right ovary are seen with the largest measuring 2.5 cm. This is a new finding. There is focal activity involving the proximal body of the stomach. This most likely is physiologic in nature but given it's focal location, gastritis or neoplasia cannot be excluded.
== END | disposition home or self-care (01) ==
LOC: PETSC 10:36
PROVIDERS: ATTEND Internal Medicine Hematology & Oncology
DX: C83.33 Diffuse large B-cell lymphoma, intra-abdominal lymph nodes (principal); I25.10 Atherosclerotic heart disease of native coronary artery without angina pectoris; N28.1 Cyst of kidney, acquired
CPT/HCPCS: 78815; A9552

== ENCOUNTER 2021-01-29 17:14 | Inpatient (IN) | payer MEDICARE, MEDICAID ==
[~2021-01-29] VITALS: Ht 152.4 cm; Wt 74.8 kg
[~2021-01-29 17:14] MED LIST changes: +AMLO-187 PO; -AMLO10TA8 PO; +ASPI325T11 PO; +CARV12.53 PO; +CEPH500C PO; +INSU100I13 SQ; +INSU100I53 SQ; -LEVO112T4 PO; +LEVO112T49 PO; +MEMA5TAB42 PO; +SERT-268 PO; +SIMV10TA15 PO; -SIMV10TA3 PO
--- NOTE | 2021-01-29 18:26 | ED.ADGEN ---
Past Medical History Past Medical History: Dementia, Diabetes-Type II, High Cholesterol, Hypertension, Hypothyroid, Other Additional Past Medical Histor: Lymphoma in remission Past Surgical History: Tonsillectomy Additional Past Surgical Histo: carotid, hernia, port-a-cath removed Smoking Status: Never Smoker Alcohol Use: None Drug Use: None General Adult EDM: Chief Complaint: MECHANICAL FALL HPI: HPI: Patient is a 80-year-old female coming in from nursing facility for multiple falls over the past 2 weeks. History is limited to report from the nursing facility and EMS due to patient's severe dementia. Patient herself has no complaints, denies any pain, does not remember falling. Per report the nursing facility wants the patient seen to be "checked out". Patient has a known history of ataxia. The detail of the falls was not provided. Review of Systems: Review of Systems: All other systems within normal limits except for as noted in the HPI Current Medications: Current Medications Medications (Trade) Dose Ordered Sig/Brandon Start Time Stop Time Status Last Admin Dose Admin Acetaminophen (Tylenol) 650 mg PRN Q4HRS PRN 01/29/21 20:45 01/30/21 20:44 Magnesium Sulfate 50 ml @ 25 mls/hr 1X ONCE 01/29/21 21:00 01/29/21 22:59 Ondansetron HCl (Zofran) 4 mg PRN Q8HRS PRN 01/29/21 20:45 01/30/21 20:44 Allergies: Allergies: Allergies Coded Allergies Type Severity Reaction Last Updated Verified No Known Drug Allergies 04/25/17 No Physical Exam: PE: Constitutional: Well developed, well nourished, no acute distress, non-toxic appearance. [] HENT: Normocephalic, atraumatic, bilateral external ears normal, nose normal. [] Eyes: PERRLA, conjunctiva normal, no discharge. [] Neck: No rigidity, supple, no stridor. No tenderness to palpation, no step-off or deformity of the C-spine. [] Cardiovascular: Regular rate and rhythm, brisk cap refill [] Lungs & Thorax: Non labored symmetric respirations, no tachypnea or respiratory distress. No chest tenderness palpation [] Abdomen: Soft, nondistended, no tenderness pelvic. Skin: Warm, dry, no erythema, no rash. Bruising to bilateral hands [] Back: Unremarkable Extremities: No deformities, range of motion grossly intact, no lower extremity edema. No tenderness palpation over upper and lower extremities, no deformities [] Neurologic: Alert and oriented X 3, no focal deficits noted. [] Psychologic: Affect normal, judgement normal, mood normal. [] Current Patient Data: Labs: Laboratory Tests Test 01/29/21 19:40 01/29/21 19:45 Urine Collection Type U cath Urine Color Cherelle Urine Clarity Cloudy Urine pH 5.5 (<5.0-8.0) Urine Specific [place] 1.020 (1.000-1.030) Urine Protein 30 mg/dL (NEG-TRACE) Urine Glucose (UA) 100 mg/dL (NEG) Urine Ketones (Stick) Negative mg/dL (NEG) Urine Blood Trace (NEG) Urine Nitrite Negative (NEG) Urine Bilirubin Negative (NEG) Urine Urobilinogen Dipstick 0.2 mg/dL (0.2 mg/dL) Urine Leukocyte Esterase Trace (NEG) Urine RBC 1-2 /HPF (0-2) Urine WBC 5-10 /HPF (0-4) Urine Bacteria Few /HPF (0-FEW) Urine Hyaline Casts Many /HPF Urine Mucus Mod /LPF Urine Opiates Screen Neg (NEG) Urine Methadone Screen Neg (NEG) Urine Barbiturates Neg (NEG) Urine Phencyclidine Screen Neg (NEG) Urine Amphetamine/Methamphetamine Neg (NEG) Urine Benzodiazepines Screen Neg (NEG) Urine Cocaine Screen Neg (NEG) Urine Cannabinoids Screen Neg (NEG) Urine Ethyl Alcohol Neg (NEG) White Blood Count 11.6 x10^3/uL (4.0-11.0) H Red Blood Count 3.90 x10^6/uL (3.50-5.40) Hemoglobin 12.2 g/dL (12.0-15.5) Hematocrit 36.4 % (36.0-47.0) Mean Corpuscular Volume 93 fL (79-100) Mean Corpuscular Hemoglobin 31 pg (25-35) Mean Corpuscular Hemoglobin Concent 34 g/dL (31-37) Red Cell Distribution Width 14.3 % (11.5-14.5) Platelet Count 191 x10^3/uL (140-400) Neutrophils (%) (Auto) 79 % (31-73) H Lymphocytes (%) (Auto) 12 % (24-48) L Monocytes (%) (Auto) 6 % (0-9) Eosinophils (%) (Auto) 2 % (0-3) Basophils (%) (Auto) 1 % (0-3) Neutrophils # (Auto) 9.1 x10^3/uL (1.8-7.7) H Lymphocytes # (Auto) 1.4 x10^3/uL (1.0-4.8) Monocytes # (Auto) 0.7 x10^3/uL (0.0-1.1) Eosinophils # (Auto) 0.2 x10^3/uL (0.0-0.7) Basophils # (Auto) 0.2 x10^3/uL (0.0-0.2) Sodium Level 140 mmol/L (136-145) Potassium Level 3.5 mmol/L (3.5-5.1) Chloride Level 102 mmol/L (98-107) Carbon Dioxide Level 27 mmol/L (21-32) Anion Gap 11 (6-14) Blood Urea Nitrogen 26 mg/dL (7-20) H Creatinine 1.3 mg/dL (0.6-1.0) H Estimated GFR (Cockcroft-Gault) 39.2 BUN/Creatinine Ratio 20 (6-20) Glucose Level 201 mg/dL (70-99) H Lactic Acid Level 1.4 mmol/L (0.4-2.0) Calcium Level 8.8 mg/dL (8.5-10.1) Phosphorus Level 3.3 mg/dL (2.6-4.7) Magnesium Level 1.4 mg/dL (1.8-2.4) L Total Bilirubin 0.4 mg/dL (0.2-1.0) Aspartate Amino Transferase (AST) 60 U/L (15-37) H Alanine Aminotransferase (ALT) 50 U/L (14-59) Alkaline Phosphatase 115 U/L (46-116) Creatine Kinase 65 U/L (26-192) Myoglobin 154 ng/mL (9-82) H Troponin I Quantitative 0.045 ng/mL (0.000-0.055) QW-Dje-I-Type Natriuretic Peptide 4955 pg/mL (0-449) H Total Protein 6.4 g/dL (6.4-8.2) Albumin 2.8 g/dL (3.4-5.0) L Albumin/Globulin Ratio 0.8 (1.0-1.7) L Laboratory Tests 01/29/21 19:45 Laboratory Tests 01/29/21 19:45 Vital Signs: Vital Signs Date Time Temp Pulse Resp B/P (MAP) Pulse Ox O2 Delivery O2 Flow Rate FiO2 01/29/21 20:51 72 22 159/89 (112) 97 Room Air 01/29/21 17:28 98.0 98.0 EKG: EKG: Sinus rhythm, heart rate 50 bpm, left axis deviation, occasional PVCs, no ST elevation or depression [] Heart Score: C/O Chest Pain: No Risk Factors: Risk Factors: DM, Current or recent (<one month) smoker, HTN, HLP, family history of CAD, obesity. Risk Scores: Score 0 - 3: 2.5% MACE over next 6 weeks - Discharge Home Score 4 - 6: 20.3% MACE over next 6 weeks - Admit for Clinical Observation Score 7 - 10: 72.7% MACE over next 6 weeks - Early Invasive Strategies Radiology/Procedures: Radiology/Procedures: [facility] [address] [place] [address] IMAGING REPORT Signed PATIENT: DASIA POOLCOUNT: [id number] : 1940 LOCATION: ER AGE: 80 SEX: F EXAM STATUS: REG ER ORD. PHYSICIAN: JOSEFA SHI MD REASON: fall PROCEDURE: CT HEAD AND CERVICAL SPINE WO CT HEAD AND C-SPINE WO Date: 01/29/2021 7:10 PM Clinical Indication: fall, pain Comparison: CT 01/23/2021. Technique: 5 mm axial tomographic images were obtained of the head without contrast. These were viewed on brain and bone windows. Noncontrast CT of the cervical spine was performed. Sagittal and coronal reformats were performed and evaluated. One or more of the following dose reduction techniques were utilized: Automated exposure control (AEC), Adjustment of mA and/or kV according to patient size, Use of iterative reconstruction technique such as ASiR, CT scan done according to ALARA and image gently/image wisely HEAD FINDINGS: Trace acute subdural blood products along the right anterior falx measuring up to 3 mm in thickness. No mass effect or midline shift. Mild generalized cerebral and cerebellar volume loss. Moderate nonspecific periventricular hypoattenuation, most commonly seen with chronic small vessel ischemic disease. The ventricles are normal in size, shape, and morphology. The antonio-white matter junction is normal. The basilar cisterns are patent. The visualized paranasal sinuses are normal. The visualized portions of the orbits and globes are normal. The mastoid air cells are clear. No aggressive osseous lesion or fracture. CERVICAL SPINE FINDINGS: The cervical spine is normally aligned. No acute fracture. No aggressive lytic or blastic osseous lesions. Mild multilevel degenerative disc space height loss. Multilevel mild spinal canal stenosis secondary to disc protrusions and marginal osteophytes. Multilevel mild neuroforaminal narrowing secondary to uncovertebral arthrosis. Multilevel mild facet arthrosis. The thyroid gland is normal. No cervical lymphadenopathy. Bilateral carotid atherosclerosis. The visualized aerodigestive tract is normal. The visualized portions of the lungs are clear. IMPRESSION: 1. Trace right anterior parafalcine acute subdural hematoma measuring 3 mm in th ickness. No mass effect or midline shift. This is new since exam of 01/23/2021. 2. No acute cervical spine fracture. FOR INTERNAL CODING PURPOSES Critical result: Findings discussed with Dr. Shi at 01/29/2021 7:41 PM. RESULT CODE: (C) Electronically signed by: Linda Pham MD (01/29/2021 7:42 PM) [facility] DICTATED and SIGNED BY: LINDA PHAM MD DATE: 01/29/[id number] 0 [] [facility] [address] [place] [address] IMAGING REPORT Signed PATIENT: DASIA POOLUNT: [id number] : 1940 LOCATION: ER AGE: 80 SEX: F EXAM STATUS: REG ER ORD. PHYSICIAN: JOSEFA SHI MD REASON: falls, altered mental status PROCEDURE: ACUTE ABDOMEN SERIES Three-view acute abdominal series. HISTORY: Falls, altered mental status 3 views were taken for an acute abdominal series. Lungs are clear. There is no pleural effusion. Heart is normal in size. There is no free air on the upright view of the abdomen. Bowel pattern is unremarkable without bowel obstruction. Patient's had a cholecystectomy. There are no abnormal calcifications. IMPRESSION: 1. No acute chest disease. 2. No bowel obstruction or acute finding in the abdomen. Electronically signed by: Melvin Multani MD (01/29/2021 7:48 PM) [facility] DICTATED and SIGNED BY: MELVIN MULTANI MD DATE: 01/29/21 [id number] Course & Med Decision Making: Course & Med Decision Making Pertinent Labs and Imaging studies reviewed. (See chart for details) [] Dragon Disclaimer: Dragon Disclaimer: This electronic medical record was generated, in whole or in part, using a voice recognition dictation system. Departure Departure Impression: Primary Impression: Falls Additional Impression: Hypomagnesemia Disposition: ADMITTED INPATIENT Admitting Physician: PETRA Condition: STABLE Referrals: FRAN BUSTOS MD (PCP) Problem Qualifiers JOSEFA SHI MD Jan 29, 2021 18:26
--- NOTE | 2021-01-29 18:26 | EKG ---
[facility] [address] [place] [address] Test Date: 2021-01-29 Test Time: 18:19:53 Pat Name: DASIA POOL Department: Room: Gender: F Science Consultant: : 1940 Requested By: JOSEFA SHI Order Number: [id number] Reading MD: Measurements Intervals Acra Rate: 59 P: 0 SD: 166 QRS: -25 QRSD: 106 T: 145 QT: 454 QTc: 454 Interpretive Statements SINUS RHYTHM VENTRICULAR PREMATURE COMPLEX(ES) LEFTWARD AXIS LVH WITH REPOLARIZATION ABNORMALITY ABNORMAL ECG RI6.01 No previous ECG available for comparison
--- NOTE | 2021-01-29 19:45 | RAD ---
CT HEAD AND C-SPINE WO Date: 01/29/2021 7:10 PM Clinical Indication: fall, pain Comparison: CT 01/23/2021. Technique: 5 mm axial tomographic images were obtained of the head without contrast. These were view ed on brain and bone windows. Noncontrast CT of the cervical spine was performed. Sagittal and bang l reformats were performed and evaluated. One or more of the following dose reduction techniques were utilized: Automated exposure control (AEC), Adjustment of mA and/or kV according to patient size, Us e of iterative reconstruction technique such as ASiR, CT scan done according to ALARA and image gentl y/image wisely HEAD FINDINGS: Trace acute subdural blood products along the right anterior falx measuring up to 3 mm in thickness. No mass effect or midline shift. Mild generalized cerebral and cerebellar volume loss. Moderate nonspecific periventricular hypoattenu ation, most commonly seen with chronic small vessel ischemic disease. The ventricles are normal in size, shape, and morphology. The antonio-white matter junction is normal. T he basilar cisterns are patent. The visualized paranasal sinuses are normal. The visualized portions of the orbits and globes are no rmal. The mastoid air cells are clear. No aggressive osseous lesion or fracture. CERVICAL SPINE FINDINGS: The cervical spine is normally aligned. No acute fracture. No aggressive lytic or blastic osseous les ions. Mild multilevel degenerative disc space height loss. Multilevel mild spinal canal stenosis secondary to disc protrusions and marginal osteophytes. Multilevel mild neuroforaminal narrowing secondary to u ncovertebral arthrosis. Multilevel mild facet arthrosis. The thyroid gland is normal. No cervical lymphadenopathy. Bilateral carotid atherosclerosis. The visu alized aerodigestive tract is normal. The visualized portions of the lungs are clear. IMPRESSION: 1. Trace right anterior parafalcine acute subdural hematoma measuring 3 mm in thickness. No mass effe ct or midline shift. This is new since exam of 01/23/2021. 2. No acute cervical spine fracture. FOR INTERNAL CODING PURPOSES Critical result: Findings discussed with Dr. Doss at 01/29/2021 7:41 PM. RESULT CODE: (C) Electronically signed by: Maxime Pham MD (01/29/2021 7:42 PM) [facility]
--- NOTE | 2021-01-29 19:50 | RAD ---
Three-view acute abdominal series. HISTORY: Falls, altered mental status 3 views were taken for an acute abdominal series. Lungs are clear. There is no pleural effusion. Hear t is normal in size. There is no free air on the upright view of the abdomen. Bowel pattern is unrema rkable without bowel obstruction. Patient's had a cholecystectomy. There are no abnormal calcificatio ns. IMPRESSION: 1. No acute chest disease. 2. No bowel obstruction or acute finding in the abdomen. Electronically signed by: Melvin Multani MD (01/29/2021 7:48 PM) [facility]
[2021-01-29 19:55] LABS: BASO # 0.2 x10^3/uL (0.0-0.2); BASO % 1 % (0-3); EOS # 0.2 x10^3/uL (0.0-0.7); EOS % 2 % (0-3); HEMATOCRIT 36.4 % (36.0-47.0); HEMOGLOBIN 12.2 g/dL (12.0-15.5); LYMPH # 1.4 x10^3/uL (1.0-4.8); LYMPH % 12 % (24-48); MEAN CORPUSCULAR HEMOGLOBIN 31 pg (25-35); MEAN CORPUSCULAR HGB CONC 34 g/dL (31-37); MEAN CORPUSCULAR VOLUME 93 fL (79-100); MONO # 0.7 x10^3/uL (0.0-1.1); MONO % 6 % (0-9); NEUT # 9.1 x10^3/uL (1.8-7.7); NEUT % 79 % (31-73); PLATELET COUNT 191 x10^3/uL (140-400); RED CELL DISTRIBUTION WIDTH 14.3 % (11.5-14.5); WHITE BLOOD COUNT 11.6 x10^3/uL (4.0-11.0)
[2021-01-29 20:01] LABS: BILIRUBIN,URINE NEGATIVE (NEG); CLARITY,URINE CLOUDY; COLOR,URINE AMBER; NITRITE,URINE NEGATIVE (NEG); PH,URINE 5.5 (<5.0-8.0); PROTEIN,URINE 30 mg/dL (NEG-TRACE); UROBILINOGEN,URINE 0.2 mg/dL (0.2 mg/dL)
[2021-01-29 20:07] LABS: AMPHETAMINE/METHAMPHETAMINE NEG (NEG); BARBITURATES NEG (NEG); BENZODIAZEPINES NEG (NEG); CANNABINOIDS NEG (NEG); COCAINE NEG (NEG); METHADONE NEG (NEG); OPIATES NEG (NEG); PHENCYCLIDINE NEG (NEG)
[2021-01-29 20:09] LABS: CALCIUM 8.8 mg/dL (8.5-10.1); CREATININE 1.3 mg/dL (0.6-1.0); GFR 39.2; POTASSIUM 3.5 mmol/L (3.5-5.1)
[2021-01-29 20:13] LABS: HYALINE CASTS, URINE MANY /HPF
[2021-01-29 20:15] LABS: BACTERIA,URINE FEW /HPF (0-FEW)
[2021-01-29 20:17] LABS: ALBUMIN 2.8 g/dL (3.4-5.0); ALBUMIN/GLOBULIN RATIO 0.8 (1.0-1.7); MAGNESIUM 1.4 mg/dL (1.8-2.4); PHOSPHORUS 3.3 mg/dL (2.6-4.7); TOTAL BILIRUBIN 0.4 mg/dL (0.2-1.0); TOTAL PROTEIN 6.4 g/dL (6.4-8.2)
[2021-01-29] MEDS ORDERED: ACETAMINOPHEN 325 MG TABLET. PO PRN (20:45)
[2021-01-29] MEDS ORDERED: ONDANSETRON PF 4 MG/2 ML VIAL. IV PRN (20:45)
[2021-01-29] MEDS ORDERED: MAGNESIUM SULFATE 2GM 50 ML IV ONE (21:00)
[2021-01-29] MEDS ORDERED: POTASSIUM BICARB 20 MEQ EFFERVESCENT TABLET. PO ONE (22:45)
[2021-01-29] MEDS ORDERED: DEXTROSE 50% 25 GM / 50ML DISP.SYRIN. IV PRN (23:00)
[2021-01-29] MEDS ORDERED: fentaNYL PF VIAL 100 MCG/2 ML VIAL IVP PRN (23:00)
[2021-01-29] MEDS ORDERED: INSULIN GLARGINE SYRINGE. SQ ONE (23:00)
[2021-01-30] VITALS (7 sets, daily range): BP systolic 103–173; BP diastolic 50–123
[2021-01-30] MEDS ORDERED: C.DIFF MED SCREEN BY RX. MC PRN (01:00)
[2021-01-30] MEDS ORDERED: CEFD300C PO (03:56)
[2021-01-30 05:01] LABS: BASO % 0 % (0-3); EOS # 0.2 x10^3/uL (0.0-0.7); EOS % 2 % (0-3); HEMATOCRIT 32.3 % (36.0-47.0); HEMOGLOBIN 11.1 g/dL (12.0-15.5); LYMPH # 1.9 x10^3/uL (1.0-4.8); LYMPH % 19 % (24-48); MEAN CORPUSCULAR HEMOGLOBIN 32 pg (25-35); MEAN CORPUSCULAR HGB CONC 34 g/dL (31-37); MEAN CORPUSCULAR VOLUME 93 fL (79-100); MONO # 0.7 x10^3/uL (0.0-1.1); MONO % 7 % (0-9); NEUT # 7.2 x10^3/uL (1.8-7.7); NEUT % 72 % (31-73); PLATELET COUNT 171 x10^3/uL (140-400); RED BLOOD COUNT 3.49 x10^6/uL (3.50-5.40); RED CELL DISTRIBUTION WIDTH 14.3 % (11.5-14.5)
[2021-01-30 05:08] LABS: CALCIUM 8.2 mg/dL (8.5-10.1); CREATININE 1.1 mg/dL (0.6-1.0); GFR 47.6; POTASSIUM 3.7 mmol/L (3.5-5.1)
--- NOTE | 2021-01-30 07:33 | PDOC1 ---
History and Physical Date of Admission Date of Admission DATE: 01/30/21 TIME: 07:28 Identification/Chief Complaint Chief Complaint Falls Source Source: Chart review, Patient History of Present Illness History of Present Illness Patient is a 80-year-old female with past medical history dementia, TIA, lymphoma in remission, who presents to the ED from her senior care facility due to fall. Patient was recently discharged from our service 3 days ago on cefdinir after being treated for diverticulitis with E. coli bacteremia. She reportedly suffered another fall and was sent to the ED for further evaluation. Labs on admission showed WBC 11.6, hemoglobin 12.2, hematocrit 36.4, platelet 191, BUN 26, creatinine 1.3, CBG 201, albumin 2.8, magnesium 1.4, BNP 4035, troponin 0.045. CT head/cervical spine on admission showed trace right anterior parafalcine acute subdural hematoma measuring 3 mm in thickness without mass effect or midline shift; this is new since exam of 01/23/2021. Upon my evaluatio n patient is febrile at 100.3 F. Patient admitted for further medical management. Past Medical History Cardiovascular: HTN, Hyperlipidemia Pulmonary: No pertinent hx CENTRAL NERVOUS SYSTEM: Dementia, TIA GI: No pertinent hx Heme/Onc: Cancer Hepatobiliary: No pertinent hx Psych: Anxiety, Depression Rheumatologic: No pertinent hx Infectious disease: No pertinent hx Renal/: Chronic renal insuff Endocrine: Diabetes, Hypothyroidism, Other Past Surgical History Past Surgical History: Appendectomy, Tubal Ligation, Other Family History Family History Reviewed with no relevant findings Social History Smoke: No ALCOHOL: none Drugs: None Current Problem List Problem List Problems Medical Problems: (1) Hypomagnesemia Status: Acute Current Medications Current Medications Current Medications Magnesium Sulfate 50 ml @ 25 mls/hr 1X ONCE IV Last administered on 01/29/21at 23:35; Start 01/29/21 at 21:00; Stop 01/29/21 at 23:01; Status DC Ondansetron HCl (Zofran) 4 mg PRN Q8HRS PRN IV NAUSEA/VOMITING; Start 01/29/21 at 20:45; Stop 01/30/21 at 20:44 Acetaminophen (Tylenol) 650 mg PRN Q4HRS PRN PO FEVER > 100.3'F; Start 01/29/21 at 20:45; Stop 01/30/21 at 20:44 Potassium Bicarbonate (Potassium Effervescent Tablet) 40 meq 1X ONCE PO Last administered on 01/29/21at 23:34; Start 01/29/21 at 22:45; Stop 01/29/21 at 22:49; Status DC Carvedilol (Coreg) 12.5 mg BIDWMEALS PO ; Start 01/30/21 at 08:00 Docusate Sodium (Colace) 100 mg BID PO ; Start 01/30/21 at 09:00 Ferrous Sulfate (Feosol) 325 mg DAILY08 PO ; Start 01/30/21 at 08:00 Levothyroxine Sodium (Synthroid) 112 mcg DAILYAC PO ; Start 01/30/21 at 07:30 Memantine (Namenda) 5 mg DAILY PO ; Start 01/30/21 at 09:00 Simvastatin (Zocor) 10 mg QHS PO ; Start 01/30/21 at 21:00 Sertraline HCl (Zoloft) 100 mg DAILY PO ; Start 01/30/21 at 09:00 Fentanyl Citrate (Fentanyl 2ml Vial) 25 mcg PRN Q3HRS PRN IVP SEVERE PAIN 7-10; Start 01/29/21 at 23:00 Olanzapine (ZyPREXA ZYDIS) 5 mg PRN BID PRN PO ANXIETY / AGITATION; Start 01/29/21 at 23:00 Insulin Glargine (Lantus Syringe) 8 unit 1X ONCE SQ Last administered on 01/29/21at 23:46; Start 01/29/21 at 23:00; Stop 01/29/21 at 23:02; Status DC Insulin Human Lispro (HumaLOG) 0-7 UNITS TIDWMEALS SQ ; Start 01/30/21 at 08:00 Dextrose (Dextrose 50%-Water Syringe) 12.5 gm PRN Q15MIN PRN IV SEE COMMENTS; Start 01/29/21 at 23:00 Pharmacy Consult (C.diff Med Screen By Rx) 1 each 1X PRN MC SEE COMMENTS; Start 01/30/21 at 01:00 Active Scripts Active Colace (Docusate Sodium) 100 Mg Capsule 1 Cap PO BID Reported Cefdinir 300 Mg Capsule 1 Cap PO BID Lantus Solostar (Insulin Glargine,Hum.rec.anlog) 100 Unit/1 Ml Insuln.pen 25 Units SQ HS Insulin Aspart Flexpen (Insulin Aspart) 100 Unit/1 Ml Insuln.pen 100 Unit SQ TIDWMEALS Memantine HCl 5 Mg Tablet 5 Mg PO DAILY Losartan Potassium 100 Mg Tablet 100 Mg PO DAILY Amlodipine Besylate 10 Mg Tablet 10 Mg PO DAILY Aspirin Ec (Aspirin) 325 Mg Tablet.dr 1 Tab PO DAILY Carvedilol 12.5 Mg Tablet 12.5 Mg PO BID Sertraline Hcl 100 Mg Tablet 100 Mg PO DAILY Donepezil Hcl 10 Mg Tablet 1 Tab PO DAILY Simvastatin 10 Mg Tablet 10 Mg PO QHS Ferrous Sulfate 325 Mg Tablet 325 Mg PO DAILY Levothyroxine Sodium 112 Mcg Tablet 112 Mcg PO DAILYAC Allergies Allergies: Coded Allergies: No Known Drug Allergies (Unverified , 04/25/17) ROS Review of System Reviewed with patient but unable to obtain due to history of dementia Physical Exam Physical Exam General: Alert, Cooperative, No acute distress HEENT: PERRLA, EOMI Lungs: Clear to auscultation, Normal air movement Heart: RRR, no murmurs Cardiovascular: S1, S2 Abdomen: Normal bowel sounds, Soft, No tenderness Extremities: No clubbing, No cyanosis Skin: No rashes, No significant lesion Neuro: Normal speech, Normal tone, Sensation intact Psych/Mental Status: Mental status slightly confused, mood NL Vitals Vitals Vital Signs Date Time Temp Pulse Resp B/P (MAP) Pulse Ox O2 Delivery O2 Flow Rate FiO2 01/30/21 03:00 100.3 80 16 171/59 (96) 96 Room Air 100.3 Labs Labs Laboratory Tests Test 01/29/21 19:40 01/29/21 19:45 01/30/21 04:00 Urine Collection Type U cath Urine Color Cherelle Urine Clarity Cloudy Urine pH 5.5 (<5.0-8.0) Urine Specific D Hanis 1.020 (1.000-1.030) Urine Protein 30 mg/dL (NEG-TRACE) Urine Glucose (UA) 100 mg/dL (NEG) Urine Ketones (Stick) Negative mg/dL (NEG) Urine Blood Trace (NEG) Urine Nitrite Negative (NEG) Urine Bilirubin Negative (NEG) Urine Urobilinogen Dipstick 0.2 mg/dL (0.2 mg/dL) Urine Leukocyte Esterase Trace (NEG) Urine RBC 1-2 /HPF (0-2) Urine WBC 5-10 /HPF (0-4) Urine Bacteria Few /HPF (0-FEW) Urine Hyaline Casts Many /HPF Urine Mucus Mod /LPF Urine Opiates Screen Neg (NEG) Urine Methadone Screen Neg (NEG) Urine Barbiturates Neg (NEG) Urine Phencyclidine Screen Neg (NEG) Urine Amphetamine/Methamphetamine Neg (NEG) Urine Benzodiazepines Screen Neg (NEG) Urine Cocaine Screen Neg (NEG) Urine Cannabinoids Screen Neg (NEG) Urine Ethyl Alcohol Neg (NEG) White Blood Count 11.6 x10^3/uL (4.0-11.0) 10.0 x10^3/uL (4.0-11.0) Red Blood Count 3.90 x10^6/uL (3.50-5.40) 3.49 x10^6/uL (3.50-5.40) Hemoglobin 12.2 g/dL (12.0-15.5) 11.1 g/dL (12.0-15.5) Hematocrit 36.4 % (36.0-47.0) 32.3 % (36.0-47.0) Mean Corpuscular Volume 93 fL (79-100) 93 fL (79-100) Mean Corpuscular Hemoglobin 31 pg (25-35) 32 pg (25-35) Mean Corpuscular Hemoglobin Concent 34 g/dL (31-37) 34 g/dL (31-37) Red Cell Distribution Width 14.3 % (11.5-14.5) 14.3 % (11.5-14.5) Platelet Count 191 x10^3/uL (140-400) 171 x10^3/uL (140-400) Neutrophils (%) (Auto) 79 % (31-73) 72 % (31-73) Lymphocytes (%) (Auto) 12 % (24-48) 19 % (24-48) Monocytes (%) (Auto) 6 % (0-9) 7 % (0-9) Eosinophils (%) (Auto) 2 % (0-3) 2 % (0-3) Basophils (%) (Auto) 1 % (0-3) 0 % (0-3) Neutrophils # (Auto) 9.1 x10^3/uL (1.8-7.7) 7.2 x10^3/uL (1.8-7.7) Lymphocytes # (Auto) 1.4 x10^3/uL (1.0-4.8) 1.9 x10^3/uL (1.0-4.8) Monocytes # (Auto) 0.7 x10^3/uL (0.0-1.1) 0.7 x10^3/uL (0.0-1.1) Eosinophils # (Auto) 0.2 x10^3/uL (0.0-0.7) 0.2 x10^3/uL (0.0-0.7) Basophils # (Auto) 0.2 x10^3/uL (0.0-0.2) 0.0 x10^3/uL (0.0-0.2) Sodium Level 140 mmol/L (136-145) 140 mmol/L (136-145) Potassium Level 3.5 mmol/L (3.5-5.1) 3.7 mmol/L (3.5-5.1) Chloride Level 102 mmol/L (98-107) 106 mmol/L (98-107) Carbon Dioxide Level 27 mmol/L (21-32) 28 mmol/L (21-32) Anion Gap 11 (6-14) 6 (6-14) Blood Urea Nitrogen 26 mg/dL (7-20) 21 mg/dL (7-20) Creatinine 1.3 mg/dL (0.6-1.0) 1.1 mg/dL (0.6-1.0) Estimated GFR (Cockcroft-Gault) 39.2 47.6 BUN/Creatinine Ratio 20 (6-20) Glucose Level 201 mg/dL (70-99) 150 mg/dL (70-99) Lactic Acid Level 1.4 mmol/L (0.4-2.0) Calcium Level 8.8 mg/dL (8.5-10.1) 8.2 mg/dL (8.5-10.1) Phosphorus Level 3.3 mg/dL (2.6-4.7) Magnesium Level 1.4 mg/dL (1.8-2.4) 1.9 mg/dL (1.8-2.4) Total Bilirubin 0.4 mg/dL (0.2-1.0) Aspartate Amino Transf (AST/SGOT) 60 U/L (15-37) Alanine Aminotransferase (ALT/SGPT) 50 U/L (14-59) Alkaline Phosphatase 115 U/L (46-116) Creatine Kinase 65 U/L (26-192) Myoglobin 154 ng/mL (9-82) Troponin I Quantitative 0.045 ng/mL (0.000-0.055) BF-Ayl-F-Type Natriuretic Peptide 4955 pg/mL (0-449) Total Protein 6.4 g/dL (6.4-8.2) Albumin 2.8 g/dL (3.4-5.0) Albumin/Globulin Ratio 0.8 (1.0-1.7) Laboratory Tests Test 01/29/21 19:40 01/29/21 19:45 01/30/21 04:00 Urine Collection Type U cath Urine Color Cherelle Urine Clarity Cloudy Urine pH 5.5 (<5.0-8.0) Urine Specific D Hanis 1.020 (1.000-1.030) Urine Protein 30 mg/dL (NEG-TRACE) Urine Glucose (UA) 100 mg/dL (NEG) Urine Ketones (Stick) Negative mg/dL (NEG) Urine Blood Trace (NEG) Urine Nitrite Negative (NEG) Urine Bilirubin Negative (NEG) Urine Urobilinogen Dipstick 0.2 mg/dL (0.2 mg/dL) Urine Leukocyte Esterase Trace (NEG) Urine RBC 1-2 /HPF (0-2) Urine WBC 5-10 /HPF (0-4) Urine Bacteria Few /HPF (0-FEW) Urine Hyaline Casts Many /HPF Urine Mucus Mod /LPF Urine Opiates Screen Neg (NEG) Urine Methadone Screen Neg (NEG) Urine Barbiturates Neg (NEG) Urine Phencyclidine Screen Neg (NEG) Urine Amphetamine/Methamphetamine Neg (NEG) Urine Benzodiazepines Screen Neg (NEG) Urine Cocaine Screen Neg (NEG) Urine Cannabinoids Screen Neg (NEG) Urine Ethyl Alcohol Neg (NEG) White Blood Count 11.6 x10^3/uL (4.0-11.0) 10.0 x10^3/uL (4.0-11.0) Red Blood Count 3.90 x10^6/uL (3.50-5.40) 3.49 x10^6/uL (3.50-5.40) Hemoglobin 12.2 g/dL (12.0-15.5) 11.1 g/dL (12.0-15.5) Hematocrit 36.4 % (36.0-47.0) 32.3 % (36.0-47.0) Mean Corpuscular Volume 93 fL (79-100) 93 fL (79-100) Mean Corpuscular Hemoglobin 31 pg (25-35) 32 pg (25-35) Mean Corpuscular Hemoglobin Concent 34 g/dL (31-37) 34 g/dL (31-37) Red Cell Distribution Width 14.3 % (11.5-14.5) 14.3 % (11.5-14.5) Platelet Count 191 x10^3/uL (140-400) 171 x10^3/uL (140-400) Neutrophils (%) (Auto) 79 % (31-73) 72 % (31-73) Lymphocytes (%) (Auto) 12 % (24-48) 19 % (24-48) Monocytes (%) (Auto) 6 % (0-9) 7 % (0-9) Eosinophils (%) (Auto) 2 % (0-3) 2 % (0-3) Basophils (%) (Auto) 1 % (0-3) 0 % (0-3) Neutrophils # (Auto) 9.1 x10^3/uL (1.8-7.7) 7.2 x10^3/uL (1.8-7.7) Lymphocytes # (Auto) 1.4 x10^3/uL (1.0-4.8) 1.9 x10^3/uL (1.0-4.8) Monocytes # (Auto) 0.7 x10^3/uL (0.0-1.1) 0.7 x10^3/uL (0.0-1.1) Eosinophils # (Auto) 0.2 x10^3/uL (0.0-0.7) 0.2 x10^3/uL (0.0-0.7) Basophils # (Auto) 0.2 x10^3/uL (0.0-0.2) 0.0 x10^3/uL (0.0-0.2) Sodium Level 140 mmol/L (136-145) 140 mmol/L (136-145) Potassium Level 3.5 mmol/L (3.5-5.1) 3.7 mmol/L (3.5-5.1) Chloride Level 102 mmol/L (98-107) 106 mmol/L (98-107) Carbon Dioxide Level 27 mmol/L (21-32) 28 mmol/L (21-32) Anion Gap 11 (6-14) 6 (6-14) Blood Urea Nitrogen 26 mg/dL (7-20) 21 mg/dL (7-20) Creatinine 1.3 mg/dL (0.6-1.0) 1.1 mg/dL (0.6-1.0) Estimated GFR (Cockcroft-Gault) 39.2 47.6 BUN/Creatinine Ratio 20 (6-20) Glucose Level 201 mg/dL (70-99) 150 mg/dL (70-99) Lactic Acid Level 1.4 mmol/L (0.4-2.0) Calcium Level 8.8 mg/dL (8.5-10.1) 8.2 mg/dL (8.5-10.1) Phosphorus Level 3.3 mg/dL (2.6-4.7) Magnesium Level 1.4 mg/dL (1.8-2.4) 1.9 mg/dL (1.8-2.4) Total Bilirubin 0.4 mg/dL (0.2-1.0) Aspartate Amino Transf (AST/SGOT) 60 U/L (15-37) Alanine Aminotransferase (ALT/SGPT) 50 U/L (14-59) Alkaline Phosphatase 115 U/L (46-116) Creatine Kinase 65 U/L (26-192) Myoglobin 154 ng/mL (9-82) Troponin I Quantitative 0.045 ng/mL (0.000-0.055) XH-Ajv-Z-Type Natriuretic Peptide 4955 pg/mL (0-449) Total Protein 6.4 g/dL (6.4-8.2) Albumin 2.8 g/dL (3.4-5.0) Albumin/Globulin Ratio 0.8 (1.0-1.7) Images Images PATIENT: DASIA POOL JACCOUNT: [id number] : 1940 LOCATION: ER AGE: 80 SEX: F EXAM STATUS: REG ER ORD. PHYSICIAN: JOSEFA SHI MD REASON: fall PROCEDURE: CT HEAD AND CERVICAL SPINE WO CT HEAD AND C-SPINE WO Date: 01/29/2021 7:10 PM Clinical Indication: fall, pain Comparison: CT 01/23/2021. Technique: 5 mm axial tomographic images were obtained of the head without contrast. These were viewed on brain and bone windows. Noncontrast CT of the cervical spine was performed. Sagittal and coronal reformats were performed and evaluated. One or more of the following dose reduction techniques were utilized: Automated exposure control (AEC), Adjustment of mA and/or kV according to patient size, Use of iterative reconstruction technique such as ASiR, CT scan done according to ALARA and image gently/image wisely HEAD FINDINGS: Trace acute subdural blood products along the right anterior falx measuring up to 3 mm in thickness. No mass effect or midline shift. Mild generalized cerebral and cerebellar volume loss. Moderate nonspecific periventricular hypoattenuation, most commonly seen with chronic small vessel ischemic disease. The ventricles are normal in size, shape, and morphology. The antonio-white matter junction is normal. The basilar cisterns are patent. The visualized paranasal sinuses are normal. The visualized portions of the orbits and globes are normal. The mastoid air cells are clear. No aggressive osseous lesion or fracture. CERVICAL SPINE FINDINGS: The cervical spine is normally aligned. No acute fracture. No aggressive lytic or blastic osseous lesions. Mild multilevel degenerative disc space height loss. Multilevel mild spinal canal stenosis secondary to disc protrusions and marginal osteophytes. Multilevel mild neuroforaminal narrowing secondary to uncovertebral arthrosis. Multilevel mild facet arthrosis. The thyroid gland is normal. No cervical lymphadenopathy. Bilateral carotid atherosclerosis. The visualized aerodigestive tract is normal. The visualized portions of the lungs are clear. IMPRESSION: 1. Trace right anterior parafalcine acute subdural hematoma measuring 3 mm in thickness. No mass effect or midline shift. This is new since exam of 01/23/2021. 2. No acute cervical spine fracture. PATIENT: DASIA POOL JACCOUNT: [id number] : 1940 LOCATION: ER AGE: 80 SEX: F EXAM STATUS: REG ER ORD. PHYSICIAN: JOSEFA SHI MD REASON: falls, altered mental status PROCEDURE: ACUTE ABDOMEN SERIES Three-view acute abdominal series. HISTORY: Falls, altered mental status 3 views were taken for an acute abdominal series. Lungs are clear. There is no pleural effusion. Heart is normal in size. There is no free air on the upright view of the abdomen. Bowel pattern is unremarkable without bowel obstruction. Patient's had a cholecystectomy. There are no abnormal calcifications. IMPRESSION: 1. No acute chest disease. 2. No bowel obstruction or acute finding in the abdomen. VTE Prophylaxis Ordered VTE Prophylaxis Devices: Yes VTE Pharmacological Prophylaxi: No Assessment/Plan Assessment/Plan Acute subdural hematoma E. coli bacteremia Hypomagnesemia CKD III DM2 Dementia COVID-19 PUI Plan: Consultation placed to neurosurgery CT head/cervical spine showed trace right anterior parafalcine acute subdural hematoma measuring 3 mm in thickness without mass effect or midline shift No evidence of midline shift, will continue to monitor; repeat CT head likely tomorrow. Resume cefdinir 300 mg twice daily for 10 days IV fluids Basal/prandial insulin COVID-19 pending Resume home medications Avoid aspirin and blood thinners FEN - Cardiac diet PPX - SCDs DNR Dispo - inpatient for above Advance Care Planning: Total time spent [id number] with patient 16 minutes in discussion with goals of care, comfort care, end-of-life care, pain management, code status; patient names her daughter (Jenny La) as surrogate decision-maker. Justifications for Admission Other Justification Altered mental status and diverticulitis RAJEEV HART MD Jan 30, 2021 07:33
[2021-01-30] MEDS: INSULIN LISPRO 300 UNITS/3 ML VIAL. SQ SCH ×3 (08:00→17:07)
[2021-01-30] MEDS: DOCUSATE SODIUM 100 MG CAPSULE. PO SCH ×2 (09:00→21:32)
[2021-01-30] MEDS: SERTRALINE 50 MG TABLET. PO SCH (09:09)
[2021-01-30] MEDS: FERROUS SULFATE 325 MG TABLET. PO SCH (09:10)
[2021-01-30] MEDS: MEMANTINE 5 MG TABLET. PO SCH (09:10)
[2021-01-30] MEDS: CARVEDILOL 12.5 MG TABLET. PO SCH ×2 (09:10→17:09)
[2021-01-30] MEDS: LEVOTHYROXINE 112 MCG TABLET PO SCH (09:10)
[2021-01-30] MEDS: CEFDINIR 300 MG CAPSULE PO SCH ×2 (09:13→21:32)
[2021-01-30] MEDS: DONEPEZIL HCL 10 MG TABLET. PO SCH (09:13)
[2021-01-30] MEDS: LOSARTAN POTASSIUM 50 MG TABLET. PO SCH (09:13)
[2021-01-30] MEDS: SIMVASTATIN 10 MG TABLET PO SCH (21:33)
[2021-01-30] MEDS: LACTOBACILLUS RHAMNOSUS GG 1 CAPSULE. PO SCH (21:33)
[2021-01-31 03:00] VITALS: BP 157/86
[2021-01-31 05:03] LABS: HEMATOCRIT 34.3 % (36.0-47.0); HEMOGLOBIN 11.4 g/dL (12.0-15.5); RED BLOOD COUNT 3.65 x10^6/uL (3.50-5.40); RED CELL DISTRIBUTION WIDTH 14.4 % (11.5-14.5); WHITE BLOOD COUNT 11.8 x10^3/uL (4.0-11.0)
[2021-01-31 05:25] LABS: CALCIUM 8.7 mg/dL (8.5-10.1); CREATININE 1.3 mg/dL (0.6-1.0); GFR 39.2; POTASSIUM 3.8 mmol/L (3.5-5.1)
[2021-01-31 07:00] VITALS: BP 161/62
[2021-01-31] MEDS: LEVOTHYROXINE 112 MCG TABLET PO SCH (07:30)
[2021-01-31] MEDS: INSULIN LISPRO 300 UNITS/3 ML VIAL. SQ SCH ×3 (08:00→16:56)
[2021-01-31] MEDS: FERROUS SULFATE 325 MG TABLET. PO SCH (08:00)
[2021-01-31] MEDS: CARVEDILOL 12.5 MG TABLET. PO SCH ×2 (08:00→16:56)
--- NOTE | 2021-01-31 08:53 | PDOC ---
[facility] PROGRESS NOTE Date of Service DOS: DATE: 01/31/21 TIME: 08:44 Chief Complaint Chief Complaint Acute subdural hematoma E. coli bacteremia Hypomagnesemia CKD III DM2 Dementia COVID-19 PUI Plan: Consultation placed to neurosurgery CT head/cervical spine showed trace right anterior parafalcine acute subdural hematoma measuring 3 mm in thickness without mass effect or midline shift No evidence of midline shift, will continue to monitor; repeat CT head likely tomorrow. Resume cefdinir 300 mg twice daily for 10 days IV fluids Basal/prandial insulin COVID-19 pending Resume home medications Avoid aspirin and blood thinners FEN - Cardiac diet PPX - SCDs DNR Dispo - inpatient for above Advance Care Planning: Total time spent [id number] with patient 16 minutes in discussion with goals of care, comfort care, end-of-life care, pain management, code status; patient names her daughter (Jenny La) as surrogate decision-maker. History of Present Illness History of Present Illness Patient is a 80-year-old female with past medical history dementia, TIA, lymphoma in remission, who presents to the ED from her halfway facility due to fall. Patient was recently discharged from our service 3 days ago on cefdinir after being treated for diverticulitis with E. coli bacteremia. She reportedly suffered another fall and was sent to the ED for further evaluation. Labs on admission showed WBC 11.6, hemoglobin 12.2, hematocrit 36.4, platelet 191, BUN 26, creatinine 1.3, CBG 201, albumin 2.8, magnesium 1.4, BNP 4035, tro ponin 0.045. CT head/cervical spine on admission showed trace right anterior parafalcine acute subdural hematoma measuring 3 mm in thickness without mass effect or midline shift; this is new since exam of 01/23/2021. Upon my evaluation patient is febrile at 100.3 F. Patient admitted for further medical management. 01/31/2021: Febrile 100.3 today, breathing 90% room air. WBC 11.8. Suspect she is still battling E. coli bacteremia, currently being treated with oral cefdinir. COVID-[address] head shows stable subdural hematoma. Continue treatment with oral antibiotics. COVID-19 negative patient still febrile, will consult ID for febrile E. coli bacteremia. Vitals/I&O Vitals/I&O: Vital Signs Date Time Temp Pulse Resp B/P (MAP) Pulse Ox O2 Delivery O2 Flow Rate FiO2 01/31/21 07:00 100.3 71 18 161/62 (95) 90 Room Air 100.3 I & O 01/30/21 01/30/21 01/31/21 15:00 23:00 07:00 Intake Total 500 ml 200 ml 120 ml Output Total 0 ml Balance 500 ml 200 ml 120 ml Physical Exam General: Alert, Cooperative Heart: Regular rate Lungs: Clear Abdomen: Normal bowel sounds, No tenderness Extremities: No clubbing, No cyanosis Skin: No rashes, No breakdown Labs Labs: Laboratory Tests Test 01/30/21 16:57 01/30/21 19:50 01/31/21 04:30 01/31/21 07:21 Glucose (Fingerstick) 245 mg/dL (70-99) 230 mg/dL (70-99) 202 mg/dL (70-99) White Blood Count 11.8 x10^3/uL (4.0-11.0) Red Blood Count 3.65 x10^6/uL (3.50-5.40) Hemoglobin 11.4 g/dL (12.0-15.5) Hematocrit 34.3 % (36.0-47.0) Mean Corpuscular Volume 94 fL (79-100) Mean Corpuscular Hemoglobin 31 pg (25-35) Mean Corpuscular Hemoglobin Concent 33 g/dL (31-37) Red Cell Distribution Width 14.4 % (11.5-14.5) Platelet Count 174 x10^3/uL (140-400) Sodium Level 138 mmol/L (136-145) Potassium Level 3.8 mmol/L (3.5-5.1) Chloride Level 104 mmol/L (98-107) Carbon Dioxide Level 25 mmol/L (21-32) Anion Gap 9 (6-14) Blood Urea Nitrogen 23 mg/dL (7-20) Creatinine 1.3 mg/dL (0.6-1.0) Estimated GFR (Cockcroft-Gault) 39.2 Glucose Level 227 mg/dL (70-99) Calcium Level 8.7 mg/dL (8.5-10.1) Assessment and Plan Assessmemt and Plan Problems Medical Problems: (1) Hypomagnesemia Status: Acute Comment Review of Relevant I have reviewed the following items catherine (where applicable) has been applied. Medications: Current Medications Medications (Trade) Dose Ordered Sig/Brandon Route PRN Reason Start Time Stop Time Status Last Admin Dose Admin Docusate Sodium (Colace) 100 mg BID PO 01/30/21 09:00 01/30/21 21:32 Memantine (Namenda) 5 mg DAILY PO 01/30/21 09:00 01/30/21 09:10 Simvastatin (Zocor) 10 mg QHS PO 01/30/21 21:00 01/30/21 21:33 Sertraline HCl (Zoloft) 100 mg DAILY PO 01/30/21 09:00 01/30/21 09:09 Amlodipine Besylate (Norvasc) 10 mg DAILY PO 01/30/21 09:00 01/30/21 09:13 Cefdinir (Omnicef) 300 mg BID PO 01/30/21 09:00 02/08/21 21:01 01/30/21 21:32 Donepezil HCl (Aricept) 10 mg DAILY PO 01/30/21 09:00 01/30/21 09:13 Losartan Potassium (Cozaar) 100 mg DAILY PO 01/30/21 09:00 01/30/21 09:13 Lactobacillus Rhamnosus (Culturelle) 1 cap BID PO 01/30/21 21:00 01/30/21 21:33 Justifications for Admission Other Justification Altered mental status and diverticulitis RAJEEV HART MD Jan 31, 2021 08:53
[2021-01-31] MEDS: CEFDINIR 300 MG CAPSULE PO SCH ×2 (09:00→21:01)
[2021-01-31] MEDS: MEMANTINE 5 MG TABLET. PO SCH (09:00)
[2021-01-31] MEDS: DONEPEZIL HCL 10 MG TABLET. PO SCH (09:00)
[2021-01-31] MEDS: DOCUSATE SODIUM 100 MG CAPSULE. PO SCH ×2 (09:00→21:01)
[2021-01-31] MEDS: SERTRALINE 50 MG TABLET. PO SCH (09:00)
[2021-01-31] MEDS: LACTOBACILLUS RHAMNOSUS GG 1 CAPSULE. PO SCH ×2 (09:00→21:01)
[2021-01-31] MEDS: LOSARTAN POTASSIUM 50 MG TABLET. PO SCH (09:00)
--- NOTE | 2021-01-31 10:49 | RAD ---
INDICATION: Reason: subdural hematoma / Spl. Instructions: / History: COMPARISON: January 29, 2021 TECHNIQUE: Axial CT images obtained through the head without intravenous contrast. One or more of the following individualized dose reduction techniques were utilized for this examinat ion: 1. Automated exposure control; 2. Adjustment of the mA and/or kV according to patient size; 3 . Use of iterative reconstruction technique. FINDINGS: Repeat demonstration of right parafalcine subdural hemorrhage measuring up to about 3 mm as well as a punctate focus of hemorrhage at the adjacent right frontal lobe measuring approximately 5 mm without major change from prior. No midline shift. Basal cisterns patents. Ventricles and sulci are globally prominent. No acute osseous abnormality. Scattered foci of low attenuation within the white matter. IMPRESSION: 1. No significant change in previously identified right parafalcine subdural hemorrhage. 2. Scattered regions of low attenuation within the white matter. Non-specific in nature but a commo n finding and frequently secondary to small vessel ischemic disease. 3. Prominence of ventricles and sulci which is frequently secondary to age related volume loss. Electronically signed by: Jatin Zamarripa MD (01/31/2021 10:47 AM) [id number]
[2021-01-31 11:00] VITALS: BP 163/67
[2021-01-31] MEDS: ACETAMINOPHEN 650 MG SUPP.RECT. PR PRN (13:54)
[2021-01-31 15:00] VITALS: BP 171/63
--- NOTE | 2021-01-31 17:12 | NUR ---
Patients medication was non administered due to patient being too lethargic. Md aware of patient's status. Will care for according to poc.
[2021-01-31 19:00] VITALS: BP 141/73
[2021-01-31] MEDS: SIMVASTATIN 10 MG TABLET PO SCH (21:01)
[2021-01-31 23:00] VITALS: BP 167/63
--- NOTE | 2021-01-31 23:12 | NUR ---
Pt. has a L-facial droop and R-arm flaccid. Unable to complete NIH scale r/t cognitive status and unable to follow directions. Dr. Nice notified and neurology consulted.
[2021-01-31] MEDS ORDERED: hydrALAZINE 20 MG/ML VIAL. IVP PRN (23:15)
[2021-02-01 03:00] VITALS: BP 167/58
[2021-02-01] MEDS: ACETAMINOPHEN 650 MG SUPP.RECT. PR PRN (06:24)
--- NOTE | 2021-02-01 06:46 | NUR ---
Just notified Dr. Ortega's answering service about consult.
[2021-02-01 07:00] VITALS: BP 131/60
[2021-02-01] MEDS: LEVOTHYROXINE 112 MCG TABLET PO SCH (07:30)
[2021-02-01] MEDS: CARVEDILOL 12.5 MG TABLET. PO SCH ×2 (08:00→17:00)
[2021-02-01] MEDS: FERROUS SULFATE 325 MG TABLET. PO SCH (08:00)
[2021-02-01] MEDS: LOSARTAN POTASSIUM 50 MG TABLET. PO SCH (09:00)
[2021-02-01] MEDS: SERTRALINE 50 MG TABLET. PO SCH (09:00)
[2021-02-01] MEDS: DOCUSATE SODIUM 100 MG CAPSULE. PO SCH ×2 (09:00→21:27)
[2021-02-01] MEDS: DONEPEZIL HCL 10 MG TABLET. PO SCH (09:00)
[2021-02-01] MEDS: MEMANTINE 5 MG TABLET. PO SCH (09:00)
[2021-02-01] MEDS: LACTOBACILLUS RHAMNOSUS GG 1 CAPSULE. PO SCH ×2 (09:00→21:00)
[2021-02-01] MEDS: CEFDINIR 300 MG CAPSULE PO SCH ×2 (09:00→21:00)
[2021-02-01] MEDS: INSULIN LISPRO 300 UNITS/3 ML VIAL. SQ SCH ×3 (09:57→17:00)
--- NOTE | 2021-02-01 10:16 | PDOC2 ---
NEUROLOGY CONSULT Date of Service DOS: DATE: 02/01/21 TIME: 10:06 Reason for Consult Reason for Consult: Subdural hematoma, already seen by neurosurgery Referring Physician Referring Physician: Dr. Brandon Source Source: Chart review, Patient History of Present Illness History of Present Illness The patient is an 80-year-old right-handed female brought in from her longterm with several falls. Patient has history of dementia, and I last saw her 6 years ago at which time I felt she had dementia. At that time she had a negative head CT and EEG showed diffuse slowing without focal abnormalities. She was just here last week with altered mental status, with head CT negative. This time she presents with subdural hematoma as per head CT studies reviewed below. Past Medical History Cardiovascular: AFIB, HTN, Hyperlipidemia, Other (Deep venous thrombosis) CENTRAL NERVOUS SYSTEM: Dementia, TIA GI: Diverticulosis (itis) Heme/Onc: Cancer (Non-Hodgkin's lymphoma) Psych: Anxiety, Depression Renal/: UTI Endocrine: Diabetes Past Surgical History Past Surgical History: Appendectomy, Cholecystectomy, Tubal Ligation, Other (hemorrhoidectomy, left carotid endarterectomy, bowel obstruction) Family History Family History: CAD Social History Social History , longterm resident, no alcohol or tobacco Current Medications Current Medications Current Medications Magnesium Sulfate 50 ml @ 25 mls/hr 1X ONCE IV Last administered on 01/29/21at 23:35; Start 01/29/21 at 21:00; Stop 01/29/21 at 23:01; Status DC Ondansetron HCl (Zofran) 4 mg PRN Q8HRS PRN IV NAUSEA/VOMITING; Start 01/29/21 at 20:45; Stop 01/30/21 at 20:44; Status DC Acetaminophen (Tylenol) 650 mg PRN Q4HRS PRN PO FEVER > 100.3'F Last administered on 01/30/21at 09:10; Start 01/29/21 at 20:45; Stop 01/30/21 at 20:44; Status DC Potassium Bicarbonate (Potassium Effervescent Tablet) 40 meq 1X ONCE PO Last administered on 01/29/21at 23:34; Start 01/29/21 at 22:45; Stop 01/29/21 at 22:49; Status DC Carvedilol (Coreg) 12.5 mg BIDWMEALS PO Last administered on 01/30/21at 17:09; Start 01/30/21 at 08:00 Docusate Sodium (Colace) 100 mg BID PO Last administered on 01/31/21at 21:01; Start 01/30/21 at 09:00 Ferrous Sulfate (Feosol) 325 mg DAILY08 PO Last administered on 01/30/21at 09:10; Start 01/30/21 at 08:00 Levothyroxine Sodium (Synthroid) 112 mcg DAILYAC PO Last administered on 01/30/21at 09:10; Start 01/30/21 at 07:30 Memantine (Namenda) 5 mg DAILY PO Last administered on 01/30/21 09:10; Start 01/30/21 at 09:00 Simvastatin (Zocor) 10 mg QHS PO Last administered on 01/31/21at 21:01; Start 01/30/21 at 21:00 Sertraline HCl (Zoloft) 100 mg DAILY PO Last administered on 01/30/21at 09:09; Start 01/30/21 at 09:00 Fentanyl Citrate (Fentanyl 2ml Vial) 25 mcg PRN Q3HRS PRN IVP SEVERE PAIN 7-10; Start 01/29/21 at 23:00 Olanzapine (ZyPREXA ZYDIS) 5 mg PRN BID PRN PO ANXIETY / AGITATION; Start 01/29/21 at 23:00 Insulin Glargine (Lantus Syringe) 8 unit 1X ONCE SQ Last administered on 01/29/21at 23:46; Start 01/29/21 at 23:00; Stop 01/29/21 at 23:02; Status DC Insulin Human Lispro (HumaLOG) 0-7 UNITS TIDWMEALS SQ Last administered on 02/01/21at 09:57; Start 01/30/21 at 08:00 Dextrose (Dextrose 50%-Water Syringe) 12.5 gm PRN Q15MIN PRN IV SEE COMMENTS; Start 01/29/21 at 23:00 Pharmacy Consult (C.diff Med Screen By Rx) 1 each 1X PRN MC SEE COMMENTS; Start 01/30/21 at 01:00 Amlodipine Besylate (Norvasc) 10 mg DAILY PO Last administered on 01/30/21at 09:13; Start 01/30/21 at 09:00 Cefdinir (Omnicef) 300 mg BID PO Last administered on 01/31/21 21:01; Start 01/30/21 at 09:00; Stop 02/08/21 at 21:01 Donepezil HCl (Aricept) 10 mg DAILY PO Last administered on 01/30/21at 09:13; Start 01/30/21 at 09:00 Losartan Potassium (Cozaar) 100 mg DAILY PO Last administered on 01/30/21at 09:13; Start 01/30/21 at 09:00 Lactobacillus Rhamnosus (Culturelle) 1 cap BID PO Last administered on 01/31/21at 21:01; Start 01/30/21 at 21:00 Acetaminophen (Tylenol Supp) 650 mg PRN Q6HRS PRN [place] MILD PAIN / TEMP > 100.3'F Last administered on 02/01/21at 06:24; Start 01/31/21 at 13:45 Hydralazine HCl (Apresoline Inj) 10 mg PRN Q4HRS PRN IVP ELEVATED BP, SEE COMMENTS Last administered on 02/01/21at 06:23; Start 01/31/21 at 23:15 Active Scripts Active Colace (Docusate Sodium) 100 Mg Capsule 1 Cap PO BID Reported Cefdinir 300 Mg Capsule 1 Cap PO BID Lantus Solostar (Insulin Glargine,Hum.rec.anlog) 100 Unit/1 Ml Insuln.pen 25 Units SQ HS Insulin Aspart Flexpen (Insulin Aspart) 100 Unit/1 Ml Insuln.pen 100 Unit SQ TIDWMEALS Memantine HCl 5 Mg Tablet 5 Mg PO DAILY Losartan Potassium 100 Mg Tablet 100 Mg PO DAILY Amlodipine Besylate 10 Mg Tablet 10 Mg PO DAILY Aspirin Ec (Aspirin) 325 Mg Tablet.dr 1 Tab PO DAILY Carvedilol 12.5 Mg Tablet 12.5 Mg PO BID Sertraline Hcl 100 Mg Tablet 100 Mg PO DAILY Donepezil Hcl 10 Mg Tablet 1 Tab PO DAILY Simvastatin 10 Mg Tablet 10 Mg PO QHS Ferrous Sulfate 325 Mg Tablet 325 Mg PO DAILY Levothyroxine Sodium 112 Mcg Tablet 112 Mcg PO DAILYAC Allergies Allergies: Coded Allergies: No Known Drug Allergies (Unverified , 04/25/17) ROS Review of System Negative for fever, chills, weight loss, shortness of breath, chest pain, indigestion, hematochezia, melena, and dysuria. Full 14-point review of systems is negative. Physical Exam Physical Examination General: Well-developed, well-nourished white female in no acute distress HEENT: Normocephalic andatraumatic. Temporal arteriespulsatile and nontender. Neck: Supple without bruit, no meningismus Musculoskeletal: Stability:see neurologic. Gait exam:see neurologic. Tone:see neurologic.Strength:see neurologic. Neurological: Mental Status:intact, orientation, memory, attention span/concentration, language, fund of knowledge normal. Cranial Nerves:Pupils equal and reactive to light, extraocular movements areintact, visual kaufman are full to confrontation. Facial sensation is normal. There is no facial asymmetry. Vestibulo-ocular reflex is intact. Palate elevates and tongue protrudes in midline. All other cranial related problems are negative except as mentioned before.Reflexes:2+ and symmetric with flexor plantar responses. Motor:4/5 strength, possibly a little weaker on the right, with normal tone and bulk. Coordination:Not cooperative, no gross abnormalities of cerebellar function. Gait:Not tested. Sensory:Normal pinprick, vibration, light touch, proprioception. Vitals VITALS Vital Signs Date Time Temp Pulse Resp B/P (MAP) Pulse Ox O2 Delivery O2 Flow Rate FiO2 02/01/21 07:00 99.1 59 16 131/60 (83) 93 99.1 02/01/21 03:00 Room Air Labs Labs Laboratory Tests Test 01/30/21 16:57 01/30/21 19:50 01/31/21 04:30 01/31/21 07:21 Glucose (Fingerstick) 245 mg/dL (70-99) 230 mg/dL (70-99) 202 mg/dL (70-99) White Blood Count 11.8 x10^3/uL (4.0-11.0) Red Blood Count 3.65 x10^6/uL (3.50-5.40) Hemoglobin 11.4 g/dL (12.0-15.5) Hematocrit 34.3 % (36.0-47.0) Mean Corpuscular Volume 94 fL (79-100) Mean Corpuscular Hemoglobin 31 pg (25-35) Mean Corpuscular Hemoglobin Concent 33 g/dL (31-37) Red Cell Distribution Width 14.4 % (11.5-14.5) Platelet Count 174 x10^3/uL (140-400) Sodium Level 138 mmol/L (136-145) Potassium Level 3.8 mmol/L (3.5-5.1) Chloride Level 104 mmol/L (98-107) Carbon Dioxide Level 25 mmol/L (21-32) Anion Gap 9 (6-14) Blood Urea Nitrogen 23 mg/dL (7-20) Creatinine 1.3 mg/dL (0.6-1.0) Estimated GFR (Cockcroft-Gault) 39.2 Glucose Level 227 mg/dL (70-99) Calcium Level 8.7 mg/dL (8.5-10.1) Test 01/31/21 11:35 01/31/21 13:50 01/31/21 16:52 01/31/21 19:35 Glucose (Fingerstick) 202 mg/dL (70-99) 175 mg/dL (70-99) 168 mg/dL (70-99) SARS-CoV-2 Antigen (Rapid) Negative (NEGATIVE) Test 02/01/21 07:49 Glucose (Fingerstick) 234 mg/dL (70-99) Laboratory Tests Test 01/31/21 11:35 01/31/21 13:50 01/31/21 16:52 01/31/21 19:35 Glucose (Fingerstick) 202 mg/dL (70-99) 175 mg/dL (70-99) 168 mg/dL (70-99) SARS-CoV-2 Antigen (Rapid) Negative (NEGATIVE) Test 02/01/21 07:49 Glucose (Fingerstick) 234 mg/dL (70-99) Images Images CT HEAD WO CONTRAST, 01/31 Repeat demonstration of right parafalcine subdural hemorrhage measuring up to about 3 mm as well as a punctate focus of hemorrhage at the adjacent right frontal lobe measuring approximately 5 mm without major change from prior. No midline shift. Basal cisterns patents. Ventricles and sulci are globally prominent. No acute osseous abnormality. Scattered foci of low attenuation within the white matter. IMPRESSION: 1. No significant change in previously identified right parafalcine subdural hemorrhage. 2. Scattered regions of low attenuation within the white matter. Non-specific in nature but a common finding and frequently secondary to small vessel ischemic disease. 3. Prominence of ventricles and sulci which is frequently secondary to age related volume loss. CT HEAD AND C-SPINE WO Date: 01/29/2021 7:10 PM Clinical Indication: fall, pain Comparison: CT 01/23/2021. Technique: 5 mm axial tomographic images were obtained of the head without contrast. These were viewed on brain and bone windows. Noncontrast CT of the cervical spine was performed. Sagittal and coronal reformats were performed and evaluated. One or more of the following dose reduction techniques were utilized: Automated exposure control (AEC), Adjustment of mA and/or kV according to patient size, Use of iterative reconstruction technique such as ASiR, CT scan done according to ALARA and image gently/image wisely HEAD FINDINGS: Trace acute subdural blood products along the right anterior falx measuring up to 3 mm in thickness. No mass effect or midline shift. Mild generalized cerebral and cerebellar volume loss. Moderate nonspecific periventricular hypoattenuation, most commonly seen with chronic small vessel ischemic disease. The ventricles are normal in size, shape, and morphology. The antonio-white matter junction is normal. The basilar cisterns are patent. The visualized paranasal sinuses are normal. The visualized portions of the orbits and globes are normal. The mastoid air cells are clear. No aggressive osseous lesion or fracture. CERVICAL SPINE FINDINGS: The cervical spine is normally aligned. No acute fracture. No aggressive lytic or blastic osseous lesions. Mild multilevel degenerative disc space height loss. Multilevel mild spinal canal stenosis secondary to disc protrusions and marginal osteophytes. Multilevel mild neuroforaminal narrowing secondary to uncovertebral arthrosis. Multilevel mild facet arthrosis. The thyroid gland is normal. No cervical lymphadenopathy. Bilateral carotid atherosclerosis. The visualized aerodigestive tract is normal. The visualized portions of the lungs are clear. IMPRESSION: 1. Trace right anterior parafalcine acute subdural hematoma measuring 3 mm in thickness. No mass effect or midline shift. This is new since exam of 01/23/2021. 2. No acute cervical spine fracture. Assessment/Plan Assessment/Plan Impression: Small parafalcine right-sided subdural hematoma Chronic dementia, still on donepezil and memantine Nursing reports decline of function, no longer feeding herself Recommendations: I will check another head CT tomorrow morning Aim to discharge to longterm, perhaps on hospice care Depending on course, repeat head CT in 2-4 weeks. Thank you for letting me help with the patient's care. SNEHA MCKEON MD Feb 01, 2021 10:16
[2021-02-01 11:00] VITALS: BP 138/64
--- NOTE | 2021-02-01 13:10 | PDOC ---
[facility] PROGRESS NOTE Date of Service DOS: DATE: 02/01/21 TIME: 13:09 Chief Complaint Chief Complaint Acute subdural hematoma E. coli bacteremia Hypomagnesemia CKD III DM2 Dementia COVID-19 PUI Plan: Consultation placed to neurosurgery CT head/cervical spine showed trace right anterior parafalcine acute subdural hematoma measuring 3 mm in thickness without mass effect or midline shift No evidence of midline shift, will continue to monitor; repeat CT head likely tomorrow. Resume cefdinir 300 mg twice daily for 10 days IV fluids Basal/prandial insulin COVID-19 pending Resume home medications Avoid aspirin and blood thinners FEN - Cardiac diet PPX - SCDs DNR Dispo - inpatient for above Advance Care Planning: Total time spent [id number] with patient 16 minutes in discussion with goals of care, comfort care, end-of-life care, pain management, code status; patient names her daughter (Jenny La) as surrogate decision-maker. History of Present Illness History of Present Illness Patient is a 80-year-old female with past medical history dementia, TIA, lymphoma in remission, who presents to the ED from her halfway facility due to fall. Patient was recently discharged from our service 3 days ago on cefdinir after being treated for diverticulitis with E. coli bacteremia. She reportedly suffered another fall and was sent to the ED for further evaluation. Labs on admission showed WBC 11.6, hemoglobin 12.2, hematocrit 36.4, platelet 191, BUN 26, creatinine 1.3, CBG 201, albumin 2.8, magnesium 1.4, BNP 4035, tro ponin 0.045. CT head/cervical spine on admission showed trace right anterior parafalcine acute subdural hematoma measuring 3 mm in thickness without mass effect or midline shift; this is new since exam of 01/23/2021. Upon my evaluation patient is febrile at 100.3 F. Patient admitted for further medical management. 01/31/2021: Febrile 100.3 today, breathing 90% room air. WBC 11.8. Suspect she is still battling E. coli bacteremia, currently being treated with oral cefdinir. COVID-[address] head shows stable subdural hematoma. Continue treatment with oral antibiotics. COVID-19 negative patient still febrile, will consult ID for febrile E. coli bacteremia. 02/01/2021 No acute events overnight. Patient seen and examined bedside. Pending CT of the head due to decline in function within the last 24 hours. Patient's chart, labs, images were reviewed and discussed with RN Vitals/I&O Vitals/I&O: Vital Signs Date Time Temp Pulse Resp B/P (MAP) Pulse Ox O2 Delivery O2 Flow Rate FiO2 02/01/21 11:00 98.0 56 16 138/64 (88) 95 98.0 02/01/21 03:00 Room Air I & O 01/31/21 01/31/21 02/01/21 15:00 23:00 07:00 Intake Total 0 ml 0 ml 180 ml Balance 0 ml 0 ml 180 ml Physical Exam General: Alert, Cooperative Heart: Regular rate Lungs: Clear Abdomen: Normal bowel sounds, No tenderness Extremities: No clubbing, No cyanosis Skin: No rashes, No breakdown Labs Labs: Laboratory Tests Test 01/31/21 13:50 01/31/21 16:52 01/31/21 19:35 02/01/21 07:49 SARS-CoV-2 Antigen (Rapid) Negative (NEGATIVE) Glucose (Fingerstick) 175 mg/dL (70-99) 168 mg/dL (70-99) 234 mg/dL (70-99) Test 02/01/21 12:19 Glucose (Fingerstick) 194 mg/dL (70-99) Assessment and Plan Assessmemt and Plan Problems Medical Problems: (1) Hypomagnesemia Status: Acute Comment Review of Relevant I have reviewed the following items catherine (where applicable) has been applied. Medications: Current Medications Medications (Trade) Dose Ordered Sig/Brandon Route PRN Reason Start Time Stop Time Status Last Admin Dose Admin Acetaminophen (Tylenol Supp) 650 mg PRN Q6HRS PRN [place] MILD PAIN / TEMP > 100.3'F 01/31/21 13:45 02/01/21 06:24 Hydralazine HCl (Apresoline Inj) 10 mg PRN Q4HRS PRN IVP ELEVATED BP, SEE COMMENTS 01/31/21 23:15 02/01/21 06:23 Justifications for Admission Other Justification Altered mental status and diverticulitis ANTONIO SNIDER MD Feb 01, 2021 13:09
--- NOTE | 2021-02-01 14:00 | NUR ---
Wound Care Wound Type/Assessment: patient seen per wound care consult. see wound assessment. patient has documentation of a right heel- boggy, no wound noted to this area, patient also had documentation of a chest wound this area is scabbed at this time. patient has a small opening at the distal vaginal area, unknown. the area was cleaned with cleansing wipes and recommendations of Calazime cream, prn. patient assessed from head to toe and no other wounds noted. Treatment Recommendations/Plan: Recommendations for the wound to cleanse the wound then apply Calazime cream, prn. Discharge Recommendations for dressings: Notified KAMILLA Fuentes about the POC and wound care will continue to f/u.
[2021-02-01 15:00] VITALS: BP 141/61
[2021-02-01 19:00] VITALS: BP 200/82
--- NOTE | 2021-02-01 19:29 | PDOC ---
Provider Note Date of Service: DATE: 02/01/21 TIME: 19:26 Provider Note NEUROSURGERY Patient seen at 1530 consulted for subdural hematoma history of dementia CT with Small parafalcine right-sided subdural hematoma Follow CT head ordered for tomorrow neurology following Justifications for Admission Other Justification Altered mental status and diverticulitis JIMI KEVIN TIN WORKER Feb 01, 2021 19:29
[2021-02-01] MEDS: SIMVASTATIN 10 MG TABLET PO SCH (21:00)
[2021-02-01 23:00] VITALS: BP 163/66
[2021-02-02 03:00] VITALS: BP 125/59
[2021-02-02 07:00] VITALS: BP 143/94
[2021-02-02] MEDS: LEVOTHYROXINE 112 MCG TABLET PO SCH (07:30)
[2021-02-02] MEDS: FERROUS SULFATE 325 MG TABLET. PO SCH (08:00)
[2021-02-02] MEDS: INSULIN LISPRO 300 UNITS/3 ML VIAL. SQ SCH ×2 (08:00→11:56)
[2021-02-02] MEDS: CARVEDILOL 12.5 MG TABLET. PO SCH (08:00)
[2021-02-02] MEDS: MEMANTINE 5 MG TABLET. PO SCH (09:00)
[2021-02-02] MEDS: DOCUSATE SODIUM 100 MG CAPSULE. PO SCH (09:00)
[2021-02-02] MEDS: LACTOBACILLUS RHAMNOSUS GG 1 CAPSULE. PO SCH (09:00)
[2021-02-02] MEDS: CEFDINIR 300 MG CAPSULE PO SCH (09:00)
[2021-02-02] MEDS: LOSARTAN POTASSIUM 50 MG TABLET. PO SCH (09:00)
[2021-02-02] MEDS: SERTRALINE 50 MG TABLET. PO SCH (09:00)
[2021-02-02] MEDS: DONEPEZIL HCL 10 MG TABLET. PO SCH (09:00)
--- NOTE | 2021-02-02 09:08 | RAD ---
EXAM: CT HEAD WITHOUT CONTRAST. HISTORY: Subdural hematoma. TECHNIQUE: Computed tomography of the head was performed without intravenous contrast. One or more of the following individualized dose reduction techniques were utilized for this examination: 1. Automated exposure control. 2. Adjustment of the mA and/or kV according to patient size. 3. Use of iterative reconstruction technique. COMPARISON: 01/31/2021. FINDINGS: A small frontal right parafalcine subdural hematoma is unchanged. A small amount of subarac hnoid clot adjacent to the falx is also stable. There is a chronic lacunar infarct in the right bang radiata. There is moderate to severe chronic m icroangiopathic white matter change elsewhere. There is a subacute infarct in the left occipital lobe Prominence of the lateral ventricles and hemispheric sulci indicates moderate atrophy. The visualized paranasal sinuses appear clear. The orbits are unremarkable. The temporal bones are un remarkable. The calvarium reveals no suspicious lesions. There are atherosclerotic calcifications of the internal carotid and vertebral arteries. IMPRESSION: 1. Interval development of a subacute left occipital infarct. 2. Stable small right frontal parafalcine subdural and subarachnoid hemorrhage. 3. Moderate atrophy and chronic microangiopathic white matter change elsewhere. Electronically signed by: Kaley Bailey MD (02/02/2021 9:05 AM) [id number]
--- NOTE | 2021-02-02 09:27 | PDOC ---
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, new on today's head CT Small parafalcine right-sided subdural hematoma Chronic dementia, still on donepezil and memantine NPO Plan Discussed with daughter, not a candidate for aggressive workup of stroke, maybe better to consider hospice; daughter will talk to her niece Not a candidate for anticoagulation, would wait a week to start aspirin Subjective None Objective Vital Signs Date Time Temp Pulse Resp B/P (MAP) Pulse Ox O2 Delivery O2 Flow Rate FiO2 02/02/21 07:00 98.1 80 18 143/94 (110) 97 98.1 02/02/21 03:00 Room Air Intake and Output 02/02/21 07:00 Intake Total 50 ml Balance 50 ml Intake Oral 50 ml PHYSICAL EXAM Alert, nonverbal, does not follow commands PERRL. EOMI. CN: no focal findings. Muscle tone: normal. Muscle strength: 4/5 DTR: 2+ Plantar reflex: flexor Gait: not examined. Sensory exam: no abnormal findings. No cerebellar signs elicited. Review of Relevant I have reviewed the following items catherine (where applicable) has been applied. Labs Laboratory Tests Test 01/31/21 11:35 01/31/21 13:50 01/31/21 16:52 01/31/21 19:35 Glucose (Fingerstick) 202 mg/dL (70-99) 175 mg/dL (70-99) 168 mg/dL (70-99) SARS-CoV-2 RNA (KEL) Negative (Negative) SARS-CoV-2 Antigen (Rapid) Negative (NEGATIVE) Test 02/01/21 07:49 02/01/21 12:19 02/01/21 16:56 02/01/21 20:48 Glucose (Fingerstick) 234 mg/dL (70-99) 194 mg/dL (70-99) 190 mg/dL (70-99) 201 mg/dL (70-99) Test 02/02/21 07:19 Glucose (Fingerstick) 175 mg/dL (70-99) Laboratory Tests Test 02/01/21 12:19 02/01/21 16:56 02/01/21 20:48 02/02/21 07:19 Glucose (Fingerstick) 194 mg/dL (70-99) 190 mg/dL (70-99) 201 mg/dL (70-99) 175 mg/dL (70-99) Microbiology 01/29/21 Urine Culture - Final, Complete Medications Current Medications Magnesium Sulfate 50 ml @ 25 mls/hr 1X ONCE IV Last administered on 01/29/21 23:35; Start 01/29/21 at 21:00; Stop 01/29/21 at 23:01; Status DC Ondansetron HCl (Zofran) 4 mg PRN Q8HRS PRN IV NAUSEA/VOMITING; Start 01/29/21 at 20:45; Stop 01/30/21 at 20:44; Status DC Acetaminophen (Tylenol) 650 mg PRN Q4HRS PRN PO FEVER > 100.3'F Last administered on 01/30/21at 09:10; Start 01/29/21 at 20:45; Stop 01/30/21 at 20:44; Status DC Potassium Bicarbonate (Potassium Effervescent Tablet) 40 meq 1X ONCE PO Last administered on 01/29/21at 23:34; Start 01/29/21 at 22:45; Stop 01/29/21 at 22:49; Status DC Carvedilol (Coreg) 12.5 mg BIDWMEALS PO Last administered on 01/30/21 17:09; Start 01/30/21 at 08:00 Docusate Sodium (Colace) 100 mg BID PO Last administered on 02/01/21 21:27; Start 01/30/21 at 09:00 Ferrous Sulfate (Feosol) 325 mg DAILY08 PO Last administered on 01/30/21 09:10; Start 01/30/21 at 08:00 Levothyroxine Sodium (Synthroid) 112 mcg DAILYAC PO Last administered on 01/30/21 09:10; Start 01/30/21 at 07:30 Memantine (Namenda) 5 mg DAILY PO Last administered on 01/30/21 09:10; Start 01/30/21 at 09:00 Simvastatin (Zocor) 10 mg QHS PO Last administered on 01/31/21at 21:01; Start 01/30/21 at 21:00 Sertraline HCl (Zoloft) 100 mg DAILY PO Last administered on 6/26/21at 09:09; Start 01/30/21 at 09:00 Fentanyl Citrate (Fentanyl 2ml Vial) 25 mcg PRN Q3HRS PRN IVP SEVERE PAIN 7-10; Start 01/29/21 at 23:00 Olanzapine (ZyPREXA ZYDIS) 5 mg PRN BID PRN PO ANXIETY / AGITATION; Start 01/29/21 at 23:00 Insulin Glargine (Lantus Syringe) 8 unit 1X ONCE SQ Last administered on 01/29/21at 23:46; Start 01/29/21 at 23:00; Stop 01/29/21 at 23:02; Status DC Insulin Human Lispro (HumaLOG) 0-7 UNITS TIDWMEALS SQ Last administered on 02/01/21at 09:57; Start 01/30/21 at 08:00 Dextrose (Dextrose 50%-Water Syringe) 12.5 gm PRN Q15MIN PRN IV SEE COMMENTS; Start 01/29/21 at 23:00 Pharmacy Consult (C.diff Med Screen By Rx) 1 each 1X PRN MC SEE COMMENTS; Start 01/30/21 at 01:00; Status Cancel Amlodipine Besylate (Norvasc) 10 mg DAILY PO Last administered on 01/30/21at 09:13; Start 01/30/21 at 09:00 Cefdinir (Omnicef) 300 mg BID PO Last administered on 01/31/21at 21:01; Start 01/30/21 at 09:00; Stop 02/08/21 at 21:01 Donepezil HCl (Aricept) 10 mg DAILY PO Last administered on 01/30/21at 09:13; Start 01/30/21 at 09:00 Losartan Potassium (Cozaar) 100 mg DAILY PO Last administered on 01/30/21at 09:13; Start 01/30/21 at 09:00 Lactobacillus Rhamnosus (Culturelle) 1 cap BID PO Last administered on 01/31/21at 21:01; Start 01/30/21 at 21:00 Acetaminophen (Tylenol Supp) 650 mg PRN Q6HRS PRN SC MILD PAIN / TEMP > 100.3'F Last administered on 02/01/21at 06:24; Start 01/31/21 at 13:45 Hydralazine HCl (Apresoline Inj) 10 mg PRN Q4HRS PRN IVP ELEVATED BP, SEE COMMENTS Last administered on 02/01/21at 06:23; Start 01/31/21 at 23:15 Active Scripts Active Colace (Docusate Sodium) 100 Mg Capsule 1 Cap PO BID Reported Cefdinir 300 Mg Capsule 1 Cap PO BID Lantus Solostar (Insulin Glargine,Hum.rec.anlog) 100 Unit/1 Ml Insuln.pen 25 Units SQ HS Insulin Aspart Flexpen (Insulin Aspart) 100 Unit/1 Ml Insuln.pen 100 Unit SQ TIDWMEALS Memantine HCl 5 Mg Tablet 5 Mg PO DAILY Losartan Potassium 100 Mg Tablet 100 Mg PO DAILY Amlodipine Besylate 10 Mg Tablet 10 Mg PO DAILY Aspirin Ec (Aspirin) 325 Mg Tablet.dr 1 Tab PO DAILY Carvedilol 12.5 Mg Tablet 12.5 Mg PO BID Sertraline Hcl 100 Mg Tablet 100 Mg PO DAILY Donepezil Hcl 10 Mg Tablet 1 Tab PO DAILY Simvastatin 10 Mg Tablet 10 Mg PO QHS Ferrous Sulfate 325 Mg Tablet 325 Mg PO DAILY Levothyroxine Sodium 112 Mcg Tablet 112 Mcg PO DAILYAC Vitals/I & O Vital Sign - Last 24 Hours 02/01/21 02/01/21 02/01/21 02/01/21 11:00 15:00 19:00 23:00 Temp 98.0 97.4 98.9 98.7 98.0 97.4 98.9 98.7 Pulse 56 74 80 76 Resp 16 16 18 18 B/P (MAP) 138/64 (88) 141/61 (87) 200/82 (121) 163/66 (98) Pulse Ox 95 95 96 96 O2 Delivery Room Air Room Air 02/02/21 02/02/21 03:00 07:00 Temp 98.5 98.1 98.5 98.1 Pulse 70 80 Resp 18 18 B/P (MAP) 125/59 (81) 143/94 (110) Pulse Ox 93 97 O2 Delivery Room Air Intake and Output 02/01/21 02/01/21 02/02/21 15:00 23:00 07:00 Intake Total 50 ml Balance [address] HEAD WITHOUT CONTRAST. A small frontal right parafalcine subdural hematoma is unchanged. A small amount of subarachnoid clot adjacent to the falx is also stable. There is a chronic lacunar infarct in the right bang radiata. There is moderate to severe chronic microangiopathic white matter change elsewhere. There is a subacute infarct in the left occipital lobe Prominence of the lateral ventricles and hemispheric sulci indicates moderate atrophy. The visualized paranasal sinuses appear clear. The orbits are unremarkable. The temporal bones are unremarkable. The calvarium reveals no suspicious lesions. There are atherosclerotic calcifications of the internal carotid and vertebral arteries. IMPRESSION: 1. Interval development of a subacute left occipital infarct. 2. Stable small right frontal parafalcine subdural and subarachnoid hemorrhage. 3. Moderate atrophy and chronic microangiopathic white matter change elsewhere. Justicifation of Admission Dx: Justifications for Admission: Justification of Admission Dx: Yes SNEHA MCKEON MD Feb 02, 2021 09:27
[2021-02-02 11:00] VITALS: BP 127/67
--- NOTE | 2021-02-02 11:21 | PDOC ---
[facility] PROGRESS NOTE Date of Service DOS: DATE: 02/02/21 TIME: 11:19 Chief Complaint Chief Complaint Acute Subacute infarct in the left occipital lobe, new on today's head CT Small parafalcine right-sided subdural hematoma Chronic dementia, still on donepezil and memantine E. coli bacteremia CKD III DM2 Dementia Severe protein malnutrition Plan: Neurology evaluation recommends hospice and I agree with this plan Resume cefdinir 300 mg twice daily for 10 days IV fluids Basal/prandial insulin COVID-19 pending Resume home medications Avoid aspirin and blood thinners FEN - Cardiac diet PPX - SCDs DNR Dispo - inpatient for above In addition to my E/M visit, advance care planning done with A total time of 20 minutes was spent from 1015 to 1035 face to face in discussion with the daughter regarding the patient's goals of care, end-of-life care and comfort care and CODE STATUS. At this point the daughter does agree to speak to hospice for evaluation. Patient's wishes were to focus more on quality of life than quantity. Patient would not want to live in this manner. Hospice tre's will be consulted History of Present Illness History of Present Illness Patient is a 80-year-old female with past medical history dementia, TIA, lymphoma in remission, who presents to the ED from her residential facility due to fall. Patient was recently discharged from our service 3 days ago on cefdinir after being treated for diverticulitis with E. coli bacteremia. She reportedly suffered another fall and was sent to the ED for further evaluation. Labs on admission showed WBC 11.6, hemoglobin 12.2, hematocrit 36.4, platelet 191, BUN 26, creatinine 1.3, CBG 201, albumin 2.8, magnesium 1.4, BNP 4035, troponin 0.045. CT head/cervical spine on admission showed trace right anterior parafalcine acute subdural hematoma measuring 3 mm in thickness without mass effect or midline shift; this is new since exam of 01/23/2021. Upon my evaluation patient is febrile at 100.3 F. Patient admitted for further medical management. 01/31/2021: Febrile 100.3 today, breathing 90% room air. WBC 11.8. Suspect she is still battling E. coli bacteremia, currently being treated with oral cefdini r. COVID-[address] head shows stable subdural hematoma. Continue treatment with oral antibiotics. COVID-19 negative patient still febrile, will consult ID for febrile E. coli bacteremia. 02/01/2021 No acute events overnight. Patient seen and examined bedside. Pending CT of the head due to decline in function within the last 24 hours. Patient's chart, labs, images were reviewed and discussed with RN Vitals/I&O Vitals/I&O: Vital Signs Date Time Temp Pulse Resp B/P (MAP) Pulse Ox O2 Delivery O2 Flow Rate FiO2 02/02/21 11:00 98.6 80 16 127/67 (87) 92 98.6 02/02/21 08:00 Room Air I & O 02/01/21 02/01/21 02/02/21 15:00 23:00 07:00 Intake Total 50 ml Balance 50 ml Physical Exam Physical Exam: Right facial droop General: Alert Heart: Regular rate Lungs: Clear Abdomen: Normal bowel sounds, No tenderness Extremities: No clubbing, No cyanosis Skin: No rashes, No breakdown Labs Labs: Laboratory Tests Test 02/01/21 12:19 02/01/21 16:56 02/01/21 20:48 02/02/21 07:19 Glucose (Fingerstick) 194 mg/dL (70-99) 190 mg/dL (70-99) 201 mg/dL (70-99) 175 mg/dL (70-99) Assessment and Plan Assessmemt and Plan Problems Medical Problems: (1) Hypomagnesemia Status: Acute Comment Review of Relevant I have reviewed the following items catherine (where applicable) has been applied. Justifications for Admission Other Justification Altered mental status and diverticulitis ANTONIO SNIDER MD Feb 02, 2021 11:21
--- NOTE | 2021-02-02 12:18 | NUR ---
EDVIN following. Discussed with RN, pt came from [facility]. Family wanting to discharge home with hospice, would like referral sent to [facility]. EDVIN faxed referral to [facility]. Pt accepted with [facility] hospice, equipment will be delivered within two hours, and SW to arrange stretcher transportation for 1500 or later. Chelita jaquez will meet at the house and get patient admitted. RN notified. EDVIN will continue to follow.c Addendum: 02/02/21 at 1244 by HAN PARDO Stretcher transportation arranged with [facility] for 1630. RN and Chelita notified.
[2021-02-02] MEDS ORDERED: SCOPOLAMINE 1.5MG PATCH. TD SCH (12:30)
[2021-02-02] MEDS ORDERED: ASPI325T11 PO (12:58)
[2021-02-02] MEDS ORDERED: INSU100I13 SQ (12:58)
--- NOTE | 2021-02-02 12:59 | SNU/HH DC ---
DISCHARGE ORDERS DISCHARGE INFORMATION: DISCHARGE DATE: Feb 02, 2021 FINAL DIAGNOSIS subdural hematoma acute stroke Problems Medical Problems: (1) Hypomagnesemia Status: Acute CONDITION ON DISCHARGE: Stable CODE STATUS: Code Status: DNR/DNI HOSPICE: HOSPICE: Yes POST DISCHARGE ORDERS: ACTIVITY ORDERS: Activity as tolerated WEIGHT BEARING STATUS: Full weight bearing BATHING ORDERS: Shower-keep dressing dry DIET AFTER DISCHARGE: Cardiac WOUND/INCISION CARE: Other, see below CHECKS AFTER DISCHARGE: CHECKS AFTER DISCHARGE: Check blood press - daily, Check blood sugar, ac/hs, Check your Temp as needed DISCHARGE MEDICATIONS: Home Meds Active Scripts Lorazepam (ATIVAN) 1 Mg Tablet, 1 MG PO BID PRN for ANXIETY / AGITATION, #40 TAB Prov:DONNY YOUNGBLOOD MD 02/02/21 Insulin Glargine,Hum.rec.anlog (LANTUS SOLOSTAR) 100 Unit/1 Ml Insuln.pen, 20 UNITS SQ HS for diabetes for 30 Days, EACH Prov:DONNY YOUNGBLOOD MD 02/02/21 Aspirin (ASPIRIN EC) 325 Mg Tablet.dr, 1 TAB PO DAILY for antiplatelet, #90 TAB 3 Refills hold until february 10 Prov:DONNY YOUNGBLOOD MD 02/02/21 Docusate Sodium (COLACE) 100 Mg Capsule, 1 CAP PO BID, #60 CAP 2 Refills Prov:YAYA FAIRCHILD MD 04/26/17 Reported Medications Cefdinir (CEFDINIR) 300 Mg Capsule, 1 CAP PO BID for diverticulitis, #14 CAP 01/30/21 Losartan Potassium (LOSARTAN POTASSIUM) 100 Mg Tablet, 100 MG PO DAILY for hypertension 01/23/21 Amlodipine Besylate (AMLODIPINE BESYLATE) 10 Mg Tablet, 10 MG PO DAILY for hypertension 01/23/21 Carvedilol (Carvedilol) 12.5 Mg Tablet, 12.5 MG PO BID for hypertension, TAB 01/23/21 Sertraline Hcl (SERTRALINE HCL) 100 Mg Tablet, 100 MG PO DAILY for ANTI- DEPRESSANT, TAB 0 Refills 01/23/21 Simvastatin (SIMVASTATIN) 10 Mg Tablet, 10 MG PO QHS for FOR CHOLESTEROL, #30 TAB 0 Refills 08/04/15 Levothyroxine Sodium (LEVOTHYROXINE SODIUM) 112 Mcg Tablet, 112 MCG PO DAILYAC for THYROID SUPPLEMENT, #30 TAB 0 Refills 08/04/15 Discontinued Reported Medications Insulin Aspart (Insulin Aspart Flexpen) 100 Unit/1 Ml Insuln.pen, 100 UNIT SQ TIDWMEALS for diabetes, EACH 01/23/21 Memantine HCl (Memantine HCl) 5 Mg Tablet, 5 MG PO DAILY for dementia 01/23/21 Donepezil Hcl (DONEPEZIL HCL) 10 Mg Tablet, 1 TAB PO DAILY, #90 TAB 1 Refill 04/25/17 Ferrous Sulfate (FERROUS SULFATE) 325 Mg Tablet, 325 MG PO DAILY 08/04/15 Cephalexin (CEPHALEXIN) 500 Mg Capsule, 500 MG PO BID for antibiotic 01/23/21 DONNY YOUNGBLOOD MD Feb 02, 2021 12:59
[2021-02-02] MEDS ORDERED: LORA-434 PO (13:15)
[2021-02-02 15:00] VITALS: BP 138/69
== END 2021-02-02 17:30 | disposition hospice, home (50) | DRG 82 ==
LOC: ER 17:14 → 6 SOUTH 22:04
PROVIDERS: ADMIT Internal Medicine; ATTEND Internal Medicine
DX: S06.5X9A Traumatic subdural hemorrhage with loss of consciousness of unspecified duration, initial encounter (principal); E43 Unspecified severe protein-calorie malnutrition; I12.9 Hypertensive chronic kidney disease with stage 1 through stage 4 chronic kidney disease, or unspecified chronic kidney disease; E03.9 Hypothyroidism, unspecified; R29.6 Repeated falls; Z86.73 Personal history of transient ischemic attack (TIA), and cerebral infarction without residual deficits; E78.5 Hyperlipidemia, unspecified; F41.9 Anxiety disorder, unspecified; F32.9 Major depressive disorder, single episode, unspecified; Z90.49 Acquired absence of other specified parts of digestive tract; Z98.51 Tubal ligation status; Z20.822 Contact with and (suspected) exposure to COVID-19; F03.90 Unspecified dementia, unspecified severity, without behavioral disturbance, psychotic disturbance, mood disturbance, and anxiety; E83.42 Hypomagnesemia; E11.22 Type 2 diabetes mellitus with diabetic chronic kidney disease; B96.20 Unspecified Escherichia coli [E. coli] as the cause of diseases classified elsewhere; Z82.49 Family history of ischemic heart disease and other diseases of the circulatory system; Z68.32 Body mass index [BMI] 32.0-32.9, adult; E78.00 Pure hypercholesterolemia, unspecified; I48.91 Unspecified atrial fibrillation; N18.30 Chronic kidney disease, stage 3 unspecified; W18.39XA Other fall on same level, initial encounter; Y93.89 Activity, other specified; Y92.89 Other specified places as the place of occurrence of the external cause; Y99.8 Other external cause status
CPT/HCPCS: 36415; 70450; 72125; 74022; 80048; 80053; 80307; 81001; 82550; 82962; 83605; 83735; 83874; 83880; 84100; 84484; 85025; 85027; 87086; 87426; 93005; J0360; J1815; J3475; U0003; U0005; 99285-25; G0378